=== PATIENT | female | born 1985 | race Caucasian/White ===

== ENCOUNTER 2017-05-30 22:10 | Emergency (ER) | payer OTHER ==
--- NOTE | 2017-05-30 22:38 | ED ---
ENT HPI - General Chief complaint: ENT Stated complaint: ear pain Time Seen by Provider: 05/30/17 22:27 Source: patient, RN notes reviewed Mode of arrival: ambulatory Limitations: no limitations - History of Present Illness Initial comments: 31-year-old female presents emergency Department chief complaint of right ear pain, fullness feeling. Patient states started last few days. Patient has fever, chills. She states that she's had surgery on more rear she's not sure which ear. She believes it x-rays her left ear. Patient denies any known fever , chills, headache or dizziness. Denies any dental issues states that she's had her teeth pulled. Patient denies chest pain, shortness breath she does admit to some sinus congestion. - Related Data Home Medications Medication Instructions Recorded Confirmed Multivitamins, Thera [Multivitamin 1 tab PO DAILY 03/13/17 05/30/17 (formulary)] Ibuprofen [Motrin Ib] 600 mg PO Q6H PRN 05/30/17 05/30/17 Omeprazole [PriLOSEC] 40 mg PO DAILY 05/30/17 05/30/17 Previous Rx's Medication Instructions Recorded Amoxicillin/Potassium Clav 1 tab PO Q12HR #20 tab 05/30/17 [Augmentin 875-125 Tablet] Allergies Allergy/AdvReac Type Severity Reaction Status Date / Time No Known Allergies Allergy Verified 05/30/17 22:42 Review of Systems ROS Statement: Those systems with pertinent positive or pertinent negative responses have been documented in the HPI. ROS Other: All systems not noted in ROS Statement are negative. Past Medical History Past Medical History: GERD/Reflux Additional Past Medical History / Comment(s): genital herpes, anxiety History of Any Multi-Drug Resistant Organisms: MRSA Date of last positivie culture/infection: 2014 MDRO Source:: right buttock Past Surgical History: Cholecystectomy, Ear Surgery Past Psychological History: ADD/ADHD, Anxiety, Depression Smoking Status: Current every day smoker Past Alcohol Use History: None Reported Past Drug Use History: None Reported General Exam Limitations: no limitations General appearance: alert, in no apparent distress Head exam: Present: atraumatic, normocephalic, normal inspection Eye exam: Present: normal appearance, PERRL, EOMI. Absent: scleral icterus, conjunctival injection, periorbital swelling ENT exam: Present: normal oropharynx, mucous membranes moist. Absent: TM's normal bilaterally, normal external ear exam (Cerumen impaction on the right noted) Neck exam: Present: normal inspection, full ROM. Absent: tenderness, meningismus, lymphadenopathy Respiratory exam: Present: normal lung sounds bilaterally. Absent: respiratory distress, wheezes, rales, rhonchi, stridor Cardiovascular Exam: Present: regular rate, normal rhythm, normal heart sounds. Absent: systolic murmur, diastolic murmur, rubs, gallop, clicks Course Vital Signs 05/30/17 22:23 Temperature 98.2 F Pulse Rate 94 Respiratory 18 Rate Blood Pressure 139/65 O2 Sat by Pulse 97 Oximetry Medical Decision Making - Medical Decision Making 31-year-old female presents emergency Department chief complaint of right ear pain. There is an area of cerumen. This was attempted to be irrigated by RN the list was unsuccessful. Concerns for possible infection. Patient was placed on antibiotics and advised to follow-up with ENT. Disposition Clinical Impression: Otalgia, right ear, Cerumen impaction Disposition: HOME SELF-CARE Condition: Stable Instructions: Earache (ED) Additional Instructions: Please return to the Emergency Department if symptoms worsen or any other concerns. Prescriptions: Amoxicillin/Potassium Clav [Augmentin 875-125 Tablet] 1 tab PO Q12HR #20 tab Referrals: Catherine Goyal MD [Primary Care Provider] - 1-2 days Time of Disposition: 23:08
[2017-05-30 23:17] VITALS: BP 176/81; PULSE 82; RESP 20; TEMP 98.5
== END 2017-05-30 23:28 | disposition home or self-care (01) ==
LOC: EC 22:10
DX: H61.21 Impacted cerumen, right ear (principal); R50.9 Fever, unspecified; R09.81 Nasal congestion; K21.9 Gastro-esophageal reflux disease without esophagitis; F17.200 Nicotine dependence, unspecified, uncomplicated; Z79.899 Other long term (current) drug therapy; Z86.14 Personal history of Methicillin resistant Staphylococcus aureus infection; Z98.890 Other specified postprocedural states
CPT/HCPCS: 99282

== ENCOUNTER 2017-08-26 00:53 | Emergency (ER) | payer OTHER ==
[2017-08-26 00:59] VITALS: RESP 18; TEMP 98.1
--- NOTE | 2017-08-26 01:20 | ED ---
Abdominal Pain HPI - General Chief Complaint: Abdominal Pain Stated Complaint: Abdominal and Vaginal Pain 8 wks Preg Time Seen by Provider: 08/26/17 01:03 Source: patient Mode of arrival: ambulatory Limitations: no limitations - History of Present Illness Initial Comments: 31-year-old female patient presents to the emergency department today for evaluation of suprapubic abdominal cramping. Patient states that she is approximately 10 weeks . Patient states that she found out 2 weeks ago that she was . States that she has been having this mild lower abdominal cramping since then. She denies any abnormal vaginal bleeding or discharge at this time. Denies any hematuria or dysuria but states that she has been having some urinary frequency. Patient states that she is concerned she is having a miscarriage because her breast tenderness and nausea has improved. Patient denies any fever, chills, or back pain. Patient is . Patient has an appointment with her PHOTOGRAMMETRIC SURVEYOR on 08/30/2017. Patient denies any recent rash, shortness breath, chest pain, diarrhea, constipation, back pain, numbness, tingling, dizziness, weakness, headache, visual changes, or any other complaints. - Related Data Home Medications Medication Instructions Recorded Confirmed Multivitamins, Thera [Multivitamin 1 tab PO DAILY 03/13/17 07/29/17 (formulary)] Ibuprofen [Motrin Ib] 600 mg PO Q6H PRN 05/30/17 07/29/17 Omeprazole [PriLOSEC] 40 mg PO DAILY 05/30/17 07/29/17 Previous Rx's Medication Instructions Recorded Cephalexin [Keflex] 500 mg PO Q6H #28 cap 08/26/17 Allergies Allergy/AdvReac Type Severity Reaction Status Date / Time amoxicillin [From Augmentin] Allergy Rash/Hives Verified 08/26/17 00:54 clavulanic acid Allergy Rash/Hives Verified 08/26/17 00:54 [From Augmentin] Review of Systems ROS Statement: Those systems with pertinent positive or pertinent negative responses have been documented in the HPI. ROS Other: All systems not noted in ROS Statement are negative. Past Medical History Past Medical History: GERD/Reflux Additional Past Medical History / Comment(s): genital herpes, anxiety History of Any Multi-Drug Resistant Organisms: MRSA Date of last positivie culture/infection: 2014 MDRO Source:: right buttock Past Surgical History: Cholecystectomy, Ear Surgery Past Psychological History: ADD/ADHD, Anxiety, Depression Smoking Status: Current every day smoker Past Alcohol Use History: None Reported Past Drug Use History: None Reported General Exam Limitations: no limitations General appearance: alert, in no apparent distress, other (This is a well- developed, obese adult female patient in no acute distress. Vital signs upon presentation are temperature 98.1F, pulse 94, respirations 18, blood pressure 150/70, pulse ox 98% on room air.) Eye exam: Present: normal appearance, PERRL, EOMI. Absent: scleral icterus, conjunctival injection, periorbital swelling ENT exam: Present: normal exam, normal oropharynx, mucous membranes moist Respiratory exam: Present: normal lung sounds bilaterally. Absent: respiratory distress, wheezes, rales, rhonchi, stridor Cardiovascular Exam: Present: regular rate, normal rhythm, normal heart sounds. Absent: systolic murmur, diastolic murmur, rubs, gallop, clicks GI/Abdominal exam: Present: soft, normal bowel sounds. Absent: distended, tenderness, guarding, rebound, rigid Neurological exam: Present: alert, oriented X3, CN II-XII intact Psychiatric exam: Present: normal affect, normal mood Skin exam: Present: warm, dry, intact, normal color. Absent: rash Course Vital Signs 08/26/17 08/26/17 00:55 02:00 Temperature 98.1 F Pulse Rate 94 87 Respiratory 18 18 Rate Blood Pressure 150/70 125/59 O2 Sat by Pulse 98 96 Oximetry Medical Decision Making - Medical Decision Making 31-year-old female patient presents to the emergency department today for complaints of mild suprapubic abdominal cramping. Physical examination was unremarkable, abdomen soft and nontender. Patient's chief concern was that her symptoms of nausea and breast tenderness have resolved and she was concerned this means she is having a miscarriage. She denied any abnormal vaginal bleeding or discharge. States that she has been having this pain for the last 2 weeks, states that she was having the pain when she was in to see her PHOTOGRAMMETRIC SURVEYOR. They told her that this was a normal part of . I did discuss normal progression of including positive signs and symptoms and their resolution nearing the second trimester. Patient denies any hematuria, dysuria , urinary frequency, urinary urgency. Urinalysis did show some bacteriuria. We will treat her with Keflex for this. Without severe pain or vaginal bleeding I do not feel ultrasound is warranted. She does have an appointment with her OB/ HOSIERY KNITTER on 08/30/2017. Return parameters were discussed in detail. She verbalizes understanding and agrees with this plan. - Lab Data Lab Results 08/26/17 Range/Units 01:03 Urine Color Yellow Urine Appearance Cloudy H (Clear) Urine pH 5.5 (5.0-8.0) Ur Specific [place] 1.025 (1.001-1.035) Urine Protein 1+ H (Negative) Urine Glucose (UA) Negative (Negative) Urine Ketones Negative (Negative) Urine Blood Small H (Negative) Urine Nitrite Negative (Negative) Urine Bilirubin Negative (Negative) Urine Urobilinogen <2.0 (<2.0) mg/dL Ur Leukocyte Esterase Small H (Negative) Urine RBC 2 (0-5) /hpf Urine WBC 5 (0-5) /hpf Ur Squamous Epith Cells 11 H (0-4) /hpf Urine Bacteria Few H (None) /hpf Urine Mucus Occasional H (None) /hpf Disposition Clinical Impression: Bacteriuria during , Suprapubic cramping Disposition: HOME SELF-CARE Condition: Good Instructions: (ED), Abdominal Pain in (ED), Urinary Tract Infection in (ED) Additional Instructions: Increase fluids. Take medications as directed. Follow-up with your PHOTOGRAMMETRIC SURVEYOR as soon as possible. Return here immediately for any new, worsening, or concerning symptoms. Prescriptions: Cephalexin [Keflex] 500 mg PO Q6H #28 cap Is patient prescribed a controlled substance at d/c from ED?: No Referrals: Catherine Goyal MD [Primary Care Provider] - 1-2 days Time of Disposition: 01:55
[2017-08-26 01:39] LABS: Appearance,Urine Cloudy (Clear); Bacteria,Urine Few /hpf; Bilirubin,Urine Negative (Negative); Blood,Urine Small (Negative); Color,Urine Yellow; Glucose,Urine (UA) Negative (Negative); Ketones,Urine Negative (Negative); Leukocyte Esterase,Urine Small (Negative); Mucus,Urine Occasional /hpf; Nitrite,Urine Negative (Negative); PH, Urine 5.5 (5.0-8.0); Protein,Urine 1+ (Negative); RBC,Urine 2 /hpf (0-5); Specific Gravity,Urine 1.025 (1.001-1.035); Squamous Epithelial Cell,Urine 11 /hpf (0-4); Urobilinogen,Urine <2.0 mg/dL (<2.0); WBC,Urine 5 /hpf (0-5)
[2017-08-26] MEDS ORDERED: CEPHALEXIN 500 MG CAP PO STA (01:53)
[2017-08-26 02:03] VITALS: BP 125/59; PULSE 87
== END 2017-08-26 02:05 | disposition home or self-care (01) ==
LOC: EC 00:53
DX: O26.891 Other specified pregnancy related conditions, first trimester (principal); R82.71 Bacteriuria; R10.30 Lower abdominal pain, unspecified; O99.611 Diseases of the digestive system complicating pregnancy, first trimester; K21.9 Gastro-esophageal reflux disease without esophagitis; O99.331 Smoking (tobacco) complicating pregnancy, first trimester; F17.200 Nicotine dependence, unspecified, uncomplicated; Z86.14 Personal history of Methicillin resistant Staphylococcus aureus infection; Z3A.10 10 weeks gestation of pregnancy; Z79.899 Other long term (current) drug therapy; Z88.0 Allergy status to penicillin
CPT/HCPCS: 81001; 87086; 99284

== ENCOUNTER 2017-12-02 00:56 | Outpatient (CLI) | payer OTHER ==
[2017-12-02 02:00] VITALS: BP 115/56; PULSE 86; RESP 18; TEMP 97.2
[2017-12-02 02:06] LABS: Appearance,Urine Cloudy (Clear); Bacteria,Urine Rare /hpf; Bilirubin,Urine Negative (Negative); Blood,Urine Trace (Negative); Calcium Oxalate Crystals,Urine Many /hpf; Color,Urine Yellow; Glucose,Urine (UA) Negative (Negative); Ketones,Urine Negative (Negative); Leukocyte Esterase,Urine Small (Negative); Mucus,Urine Rare /hpf; Nitrite,Urine Negative (Negative); PH, Urine 5.5 (5.0-8.0); Protein,Urine 1+ (Negative); RBC,Urine 3 /hpf (0-5); Specific Gravity,Urine 1.031 (1.001-1.035); Squamous Epithelial Cell,Urine 19 /hpf (0-4)
--- NOTE | 2017-12-02 12:38 | P.MSEPDOC ---
Presenting Problems - Arrival Data Date of Arrival on Unit: 12/02/17 Time of Arrival on Unit: 00:56 Mode of Transport: Ambulatory - Complaint OB-Reason for Admission/Chief Complaint: Pain Comment: Left sided groin pain when walking or moving. Vaginal tenderness when wiping Medical History - Information : 2 Para: 0 Term: 0 : 0 Abortions: Spontaneous or Elective: 1 Number of Living Children: 0 - Gestational Age Gestational Age by SARAH (wks/days): 24 Weeks and 3 Days Review of Systems - Review of Systems Constitutional: No problems Breast: No problems ENT: No problems Cardiovascular: No problems Respiratory: No problems Gastrointestinal: No problems Genitourinary: Dysuria Musculoskeletal: No problems Neurological: No problems Skin: No problems Vital Signs - Temperature Temperature: 97.2 F Temperature Source: Temporal Artery Scan - Pulse Right Brachial Pulse Rate: 86 Pulse Assessment Method: Automatic Cuff - Respirations Respiratory Rate: 18 Oxygen Delivery Method: Room Air O2 Sat by Pulse Oximetry: 99 - Blood Pressure Right Arm Blood Pressure: 115/56 Blood Pressure Mean: 75 Blood Pressure Source: Automatic Cuff Medical Screen Scoring (Pre) - Cervical Exam Dilation: Exam Deferred Effacement: Exam Deferred Membranes: Intact - Uterine Contractions Frequency: N/A - Maternal Vital Signs Maternal Temperature: N/A Maternal Blood Pressure: N/A Signs of Preeclampsia: N/A Maternal Respirations: N/A - Pain Assessment Pain Location and Character: Left, Lower, Abdomen Pain Scale Used: Numeric (1 - 10) Pain Intensity: 5 Pain Description: Aching Pain Frequency: Intermittent Pain Duration Units: Minutes Pain Behavior: None Exhibited Pain Aggravating Factors: Activity, Changing Position - Assessment Baseline FHR: 135 Heart Rate - NICHD Category: Category I (Normal) = 0 - Total Score Total Score (Pre): 0 - Level of Risk Level of Risk: Low (0-5) Physician Notification (Pre) - Physician Notified Physician Notified Date: 12/02/17 Physician Notified Time: 01:36 Physician/Practitioner Notifed:: Dr. Lance Spoke With: Dr. Lance New Order Received: Yes - Notification Comment Comment: Dr. Lance given report on pt. Pt c/o of left sided groin pain upon standing or moving. Vaginal tenderness when wiping. Pt is high risk and being seen at [facility] for obesity. Pt also states she was diagnosed GDM. Pt is currently being tx for UTI. Orders recieved to send UA and culture. To d/c pt to home and to have pt's DR follow up for Culture results Disposition - Disposition OB Disposition: Discharge to home Discharge Date: 12/02/17 Discharge Time: 01:57 I agree with the RN Medical Screening Exam: Yes Risk & Benefit of care provided described in d/c instruction: Yes Diagnosis: PAIN, UNSPECIFIED
== END 2017-12-02 01:56 | disposition home or self-care (01) ==
LOC: FBPOP 00:56
PROVIDERS: ATTEND Obstetrics & Gynecology
DX: O99.89 Other specified diseases and conditions complicating pregnancy, childbirth and the puerperium (principal); R52 Pain, unspecified; Z3A.24 24 weeks gestation of pregnancy
CPT/HCPCS: 81001; 87086; G0463; 99213

== ENCOUNTER 2017-12-17 12:14 | Emergency (ER) | payer OTHER ==
[2017-12-17 12:33] VITALS: RESP 18
[2017-12-17] MEDS ORDERED: LIDOCAINE/EPINEPHR/TETRACAINE 5 ML BOTTLE TOPICAL ONE (12:59)
--- NOTE | 2017-12-17 13:15 | ED ---
Skin/Abscess/FB HPI - General Chief complaint: Skin/Abscess/Foreign Body Stated complaint: Urogenital-27 wks preg Time Seen by Provider: 12/17/17 12:34 Source: patient, RN notes reviewed, old records reviewed Mode of arrival: ambulatory Limitations: no limitations - History of Present Illness Initial comments: This is a 32-year-old female present the emergency department today with chief complaint of a abscess over her left labia majora. Patient reports that she noticed over the past 2 days with painful she was wiping. She denies any specific dysuria. Patient states she's also been on Macrobid for asymptomatic bacteriuria in . He denies any vaginal bleeding or discharge. She states she has no abdominal pain. - Related Data Home Medications Medication Instructions Recorded Confirmed Cholecalciferol (Vitamin D3) 2,000 unit PO DAILY 12/02/17 12/17/17 [Vitamin D3] Pnv No.95/Ferrous Fum/Folic AC 1 each PO ONCE 12/02/17 12/17/17 [ Multivitamin Tablet] Omeprazole Magnesium [PriLOSEC OTC] 20 mg PO DAILY PRN 12/17/17 12/17/17 Previous Rx's Medication Instructions Recorded Cephalexin [Keflex] 500 mg PO Q8HR #21 cap 12/17/17 Allergies Allergy/AdvReac Type Severity Reaction Status Date / Time amoxicillin [From Augmentin] Allergy Rash/Hives Verified 12/17/17 12:33 clavulanic acid Allergy Rash/Hives Verified 12/17/17 12:33 [From Augmentin] Review of Systems ROS Statement: Those systems with pertinent positive or pertinent negative responses have been documented in the HPI. ROS Other: All systems not noted in ROS Statement are negative. Past Medical History Past Medical History: GERD/Reflux Additional Past Medical History / Comment(s): genital herpes, anxiety, fely. cyst History of Any Multi-Drug Resistant Organisms: None Reported, MRSA Date of last positivie culture/infection: 2014 MDRO Source:: right buttock Past Surgical History: Cholecystectomy, Ear Surgery Past Psychological History: ADD/ADHD, Anxiety, Depression Smoking Status: Current every day smoker Past Alcohol Use History: None Reported Past Drug Use History: None Reported General Exam - General Exam Comments Initial Comments: This is a 32-year-old female. Alert and oriented. No significant distress. Patient is morbidly obese. Limitations: no limitations General appearance: alert, in no apparent distress Head exam: Present: atraumatic, normocephalic, normal inspection Eye exam: Present: normal appearance, PERRL, EOMI. Absent: scleral icterus, conjunctival injection, periorbital swelling ENT exam: Present: normal exam, mucous membranes moist Neck exam: Present: normal inspection. Absent: tenderness, meningismus, lymphadenopathy Respiratory exam: Present: normal lung sounds bilaterally. Absent: respiratory distress, wheezes, rales, rhonchi, stridor GI/Abdominal exam: Present: soft, normal bowel sounds. Absent: distended, tenderness, guarding, rebound, rigid External exam: Present: erythema (She has an area of erythema and swelling over the labia majora on the left side. Concern for small abscess from infected hair follicle.), swelling. Absent: normal external exam Extremities exam: Present: normal inspection, full ROM, normal capillary refill. Absent: tenderness, pedal edema, joint swelling, calf tenderness Back exam: Present: normal inspection Neurological exam: Present: alert, oriented X3, CN II-XII intact Psychiatric exam: Present: normal affect, normal mood Skin exam: Present: warm, dry, intact, normal color. Absent: rash Course Vital Signs 12/17/17 12/17/17 12:29 13:48 Temperature 98.4 F 97.5 F L Pulse Rate 103 H 81 Respiratory 18 18 Rate Blood Pressure 116/69 122/62 O2 Sat by Pulse 98 98 Oximetry Procedures - Incision & Drainage Time Out Performed?: Yes Size (cm): 2 Anesthetic Used: lidocaine 1% Amount (mLs): 2 I&D Cleaning Method: Iodine Sterile Field Used?: Yes Scalpel Used: #11 Needle Aspiration Performed?: Yes Irrigation Performed?: Yes I&D Drainage Obtained: Pus, Blood Culture Obtained?: Yes Patient Tolerated Procedure: well, no complications Medical Decision Making - Medical Decision Making Patient is a 32-year-old female presents weren't [place] today with an abscess over her left labia majora. Likely due to infected hair follicle. She is also 27 weeks . She does state that she's been on Macrobid intermittently for bacteria . She reports she is a high-risk and follows with DIETETIC TECH some [place]. At this time Patient appears to have a superficial 2 cm abscess of her left labia majora. I cleansed the area with iodine and used an 11 blade scalpel made a small incision. Pus was extracted from the site. We did start the Patient on Keflex. Patient has been advised to follow-up with DIETETIC TECH and primary care physician. Discussed doing sits baths. Disposition Clinical Impression: Left genital labial abscess Disposition: HOME SELF-CARE Condition: Good Instructions: Abscess (ED) Additional Instructions: Patient advised to follow-up with primary care physician. Do warm sits baths. Take antibiotic as prescribed. Return to emergency department if any alarming signs or symptoms occur. Prescriptions: Cephalexin [Keflex] 500 mg PO Q8HR #21 cap Is patient prescribed a controlled substance at d/c from ED?: No Referrals: Catherine Goyal MD [Primary Care Provider] - 1-2 days Time of Disposition: 13:34
[2017-12-17] MEDS ORDERED: LIDOCAINE 1% INJ 10MG/ML (20 ML MDV) SQ STA (13:18)
[2017-12-17 13:49] VITALS: BP 122/62; PULSE 81; TEMP 97.5
== END 2017-12-17 13:48 | disposition home or self-care (01) ==
LOC: EC 12:14
DX: O23.592 Infection of other part of genital tract in pregnancy, second trimester (principal); O99.612 Diseases of the digestive system complicating pregnancy, second trimester; K21.9 Gastro-esophageal reflux disease without esophagitis; O99.332 Smoking (tobacco) complicating pregnancy, second trimester; F17.200 Nicotine dependence, unspecified, uncomplicated; Z3A.27 27 weeks gestation of pregnancy; Z88.0 Allergy status to penicillin; Z88.1 Allergy status to other antibiotic agents
CPT/HCPCS: 87070; 87205; 99284; 56405; J2001

== ENCOUNTER 2017-12-22 19:22 | Emergency (ER) | payer OTHER ==
[2017-12-22] MEDS ORDERED: LIDOCAINE 1% INJ 10MG/ML (20 ML MDV) SQ ONE (20:23)
--- NOTE | 2017-12-22 21:34 | ED ---
Skin/Abscess/FB HPI - General Chief complaint: Skin/Abscess/Foreign Body Stated complaint: Female Time Seen by Provider: 12/22/17 20:18 Source: patient Mode of arrival: ambulatory Limitations: no limitations - History of Present Illness Initial comments: 32-year-old female patient presents to the emergency department today for evaluation of abscess to the labia. Patient states that she did have this drained approximately 5 days ago but the area has become more swollen and painful. Patient states that she has been doing warm compresses but it is not seem to be helping. Patient is taking Keflex currently for the infection. Patient is 27 weeks . She denies any abdominal pain, vaginal bleeding, or vaginal discharge. She denies any fevers or chills. Denies any hematuria, dysuria, urinary frequency, urinary urgency. Patient denies any recent rash, shortness breath, chest pain, abdominal pain, nausea, vomiting, diarrhea, constipation, back pain, numbness, tingling, dizziness, weakness, headache, visual changes, or any other complaints. - Related Data Home Medications Medication Instructions Recorded Confirmed Cholecalciferol (Vitamin D3) 2,000 unit PO DAILY 12/02/17 12/22/17 [Vitamin D3] Pnv No.95/Ferrous Fum/Folic AC 1 tab PO DAILY 12/02/17 12/22/17 [ Multivitamin Tablet] Omeprazole Magnesium [PriLOSEC OTC] 20 mg PO DAILY PRN 12/17/17 12/22/17 Previous Rx's Medication Instructions Recorded Cephalexin [Keflex] 500 mg PO Q8HR #21 cap 12/17/17 Allergies Allergy/AdvReac Type Severity Reaction Status Date / Time amoxicillin [From Augmentin] Allergy Rash/Hives Verified 12/22/17 20:35 clavulanic acid Allergy Rash/Hives Verified 12/22/17 20:35 [From Augmentin] Review of Systems ROS Statement: Those systems with pertinent positive or pertinent negative responses have been documented in the HPI. ROS Other: All systems not noted in ROS Statement are negative. Past Medical History Past Medical History: GERD/Reflux Additional Past Medical History / Comment(s): genital herpes, anxiety, fely. cyst History of Any Multi-Drug Resistant Organisms: None Reported, MRSA Date of last positivie culture/infection: 2014 MDRO Source:: right buttock Past Surgical History: Cholecystectomy, Ear Surgery Past Psychological History: ADD/ADHD, Anxiety, Depression Smoking Status: Current every day smoker Past Alcohol Use History: None Reported Past Drug Use History: None Reported General Exam Limitations: no limitations General appearance: alert, in no apparent distress, other (This is a well- developed, well-nourished adult female patient in no acute distress. Vital signs upon presentation are temperature 99.0F, pulse 109, respirations 18, blood pressure 131/81, pulse ox 96% on room air.) Eye exam: Present: normal appearance, PERRL, EOMI. Absent: scleral icterus, conjunctival injection, periorbital swelling ENT exam: Present: normal exam, normal oropharynx, mucous membranes moist Respiratory exam: Present: normal lung sounds bilaterally. Absent: respiratory distress, wheezes, rales, rhonchi, stridor Cardiovascular Exam: Present: regular rate, normal rhythm, normal heart sounds. Absent: systolic murmur, diastolic murmur, rubs, gallop, clicks GI/Abdominal exam: Present: soft, normal bowel sounds, other (Gravid abdomen). Absent: distended, tenderness, guarding, rebound, rigid Neurological exam: Present: alert, oriented X3, CN II-XII intact Psychiatric exam: Present: normal affect, normal mood Skin exam: Present: warm, dry, intact, normal color. Absent: rash Course Vital Signs 12/22/17 12/22/17 19:35 21:41 Temperature 99 F 98 F Pulse Rate 109 H 86 Respiratory 18 16 Rate Blood Pressure 131/81 129/62 O2 Sat by Pulse 96 98 Oximetry Procedures - Incision & Drainage Consent Obtained: verbal consent Indication: abscess Site: vulva/vagina (Labia majora) Size (cm): 2 Anesthetic Used: lidocaine 1% Amount (mLs): 5 I&D Cleaning Method: Betadine Sterile Field Used?: Yes Scalpel Used: #11 Needle Aspiration Performed?: No Irrigation Performed?: No I&D Drainage Obtained: Pus, Blood Packing: Iodoform (One quarter inch) Culture Obtained?: No Patient Tolerated Procedure: well Medical Decision Making - Medical Decision Making 32-year-old female patient presented to the emergency department today for evaluation of abscess to the left labia majora. Physical examination did reveal a 2 cm fluctuant abscess to the left upper labia majora. Did perform incision and drainage, patient tolerated the procedure very well. There was a purulent output. Patient did have this drained here approximately 5 days ago, did review results of culture showed no growth. Patient is currently taking Keflex for this, she is instructed to continue taking this medication. She is instructed to follow up with her [facility] MAKER for further evaluation and recheck of the area. Return parameters were discussed in detail. She verbalizes understanding and agrees with this plan. Disposition Clinical Impression: Abscess of labia majora Narrative: LEft Disposition: HOME SELF-CARE Condition: Good Instructions: Abscess Incision and Drainage (ED), Abscess (ED) Additional Instructions: Do warm sitz baths 3-4 times daily. Take Tylenol for pain control. Follow-up with LEVI MAKER for reevaluation of the abscess in 1-2 days. Return here immediately for any new, worsening, or concerning symptoms. Is patient prescribed a controlled substance at d/c from ED?: No Referrals: Catherine Goyal MD [Primary Care Provider] - 1-2 days Time of Disposition: 21:34
[2017-12-22 21:42] VITALS: BP 129/62; PULSE 86; RESP 16; TEMP 98
== END 2017-12-22 21:42 | disposition home or self-care (01) ==
LOC: EC 19:22
DX: O23.592 Infection of other part of genital tract in pregnancy, second trimester (principal); N76.4 Abscess of vulva; Z3A.27 27 weeks gestation of pregnancy; O99.332 Smoking (tobacco) complicating pregnancy, second trimester; F17.200 Nicotine dependence, unspecified, uncomplicated; Z86.14 Personal history of Methicillin resistant Staphylococcus aureus infection; Z79.899 Other long term (current) drug therapy; Z88.0 Allergy status to penicillin
CPT/HCPCS: 99283; 56405; J2001

== ENCOUNTER 2018-01-24 15:54 | Emergency (ER) | payer OTHER ==
[2018-01-24] MEDS ORDERED: LIDOCAINE 1% INJ 10MG/ML (20 ML MDV) SQ ONE (17:07)
[2018-01-24] MEDS ORDERED: CEPHALEXIN 500 MG CAP PO STA (17:11)
--- NOTE | 2018-01-24 17:18 | ED ---
Female Urogenital HPI - General Chief complaint: Urogenital Stated complaint: Female , Cyst Time Seen by Provider: 01/24/18 16:29 Source: patient, RN notes reviewed Mode of arrival: ambulatory Limitations: no limitations - History of Present Illness Initial comments: This is a 32-year-old female presents to the emergency department with chief complaint of vaginal cyst. Patient states that she is currently 32 weeks . She states that this is the second cyst she has had on her labia in the past 3 months. Patient states the last one was incised and she was started on Keflex. Patient states that she noticed the cyst 4 days ago. She states that the cyst drained on day 1 but has not been drinking since. She denies any fevers or chills. Denies abdominal pain, nausea or vomiting, vaginal bleeding, dysuria, hematuria, increased urinary frequency and urgency. - Related Data Home Medications Medication Instructions Recorded Confirmed Cholecalciferol (Vitamin D3) 2,000 unit PO HS 12/02/17 01/24/18 [Vitamin D3] Pnv No.95/Ferrous Fum/Folic AC 1 tab PO HS 12/02/17 01/24/18 [ Multivitamin Tablet] Acetaminophen [Tylenol] 1,000 mg PO Q4-6H PRN 01/24/18 01/24/18 Previous Rx's Medication Instructions Recorded Cephalexin [Keflex] 500 mg PO Q12HR #10 cap 01/24/18 Allergies Allergy/AdvReac Type Severity Reaction Status Date / Time amoxicillin [From Augmentin] Allergy Rash/Hives Verified 01/24/18 16:39 clavulanic acid Allergy Rash/Hives Verified 01/24/18 16:39 [From Augmentin] Review of Systems ROS Statement: Those systems with pertinent positive or pertinent negative responses have been documented in the HPI. ROS Other: All systems not noted in ROS Statement are negative. Past Medical History Past Medical History: GERD/Reflux Additional Past Medical History / Comment(s): genital herpes, anxiety, fely. cyst History of Any Multi-Drug Resistant Organisms: None Reported, MRSA Date of last positivie culture/infection: 2014 MDRO Source:: right buttock Past Surgical History: Cholecystectomy, Ear Surgery Past Psychological History: ADD/ADHD, Anxiety, Depression Smoking Status: Current every day smoker Past Alcohol Use History: None Reported Past Drug Use History: None Reported General Exam - General Exam Comments Initial Comments: General: Awake and alert, well-developed; in no apparent distress. HEENT: Head atraumatic, normocephalic. Pupils are equal, round and reactive to light. Extraocular movements intact. Oropharynx moist with missing dentition throughout. Neck: Supple. Normal ROM. Cardiovascular: Regular rate and rhythm. No murmurs, rubs or gallops. Chest symmetrical. Respiratory: Lungs clear to auscultation bilaterally. No wheezes, rales or rhonchi. Normal respiratory effort with no use of accessory muscles. Abdomen: Soft, non-tender, non-distended. No rigidity, rebound or guarding. Normal bowel sounds in all 4 quadrants. Musculoskeletal: Normal ROM, no tenderness bilateral upper and lower extremities. Ambulating normally. Skin: [place], warm and dry. Neurological: Alert and oriented x3. CN II-XII grossly intact. Speech is fluent and answers are appropriate. No focal neuro deficits. Psychiatric: Normal mood and affect. No overt signs of depression or anxiety noted. Limitations: no limitations External exam: Present: other (Approximately 1 cm in diameter area of fluctuance with overlying pustule left labia majora.) Course Vital Signs 01/24/18 16:18 Temperature 98.1 F Pulse Rate 65 Respiratory 16 Rate Blood Pressure 136/68 O2 Sat by Pulse 97 Oximetry Procedures - Incision & Drainage Consent Obtained: verbal consent Indication: Genital abscess Site: vulva/vagina Size (cm): 1 Anesthetic Used: lidocaine 1% Amount (mLs): 2 I&D Cleaning Method: Betadine Scalpel Used: #11 I&D Drainage Obtained: Pus, Blood Culture Obtained?: No Patient Tolerated Procedure: well, no complications Medical Decision Making - Medical Decision Making This is a 32-year-old female who presents to the emergency department with chief complaint of vaginal cyst. Patient is currently 32 weeks . She reports a cyst to her labia for the past 4 days. There is an approximately 1 cm in diameter area of fluctuance to the left labia majora. I&D was performed and pus and blood were extracted. Patient tolerated the procedure well without complications. Recommended warm compresses and sitz baths. Instructed patient to follow up with [facility] plan within 1-2 days. Patient will be started on a course of Keflex. Vital signs are stable and she is in no acute distress. She will be discharged home at this time. She is in agreement with plan and voices understanding. All questions were answered. Disposition Clinical Impression: Abscess of labia majora Disposition: HOME SELF-CARE Condition: Good Instructions: Abscess Incision and Drainage (ED), Abscess (ED) Additional Instructions: Please take medications as prescribed. Please follow-up with [facility] within 1-2 days. Please perform warm sits baths and use warm compresses. Please follow up with primary care provider within 1-2 days. Return to emergency department if symptoms should worsen or any concerns arise. Prescriptions: Cephalexin [Keflex] 500 mg PO Q12HR #10 cap Is patient prescribed a controlled substance at d/c from ED?: No Referrals: Catherine Goyal MD [Primary Care Provider] - 1-2 days Time of Disposition: 17:46
[2018-01-24 18:01] VITALS: BP 137/66; PULSE 67; RESP 18; TEMP 98.3
== END 2018-01-24 18:01 | disposition home or self-care (01) ==
LOC: EC 15:54
DX: O99.89 Other specified diseases and conditions complicating pregnancy, childbirth and the puerperium (principal); N76.4 Abscess of vulva; Z3A.32 32 weeks gestation of pregnancy; O99.333 Smoking (tobacco) complicating pregnancy, third trimester; F17.200 Nicotine dependence, unspecified, uncomplicated; Z86.14 Personal history of Methicillin resistant Staphylococcus aureus infection; Z79.899 Other long term (current) drug therapy; Z88.0 Allergy status to penicillin
CPT/HCPCS: 99283; 56405; J2001

== ENCOUNTER 2018-01-31 09:02 | Outpatient (CLI) | payer OTHER ==
[2018-01-31 09:47] LABS: Appearance,Urine Cloudy (Clear); Bacteria,Urine Moderate /hpf; Bilirubin,Urine Negative (Negative); Blood,Urine Negative (Negative); Color,Urine Yellow; Glucose,Urine (UA) 3+ (Negative); Ketones,Urine Negative (Negative); Leukocyte Esterase,Urine Small (Negative); Mucus,Urine Rare /hpf; Nitrite,Urine Negative (Negative); Protein,Urine Trace (Negative); RBC,Urine 2 /hpf (0-5); Specific Gravity,Urine 1.018 (1.001-1.035); Squamous Epithelial Cell,Urine 21 /hpf (0-4); Urobilinogen,Urine <2.0 mg/dL (<2.0); WBC,Urine 5 /hpf (0-5)
[2018-01-31 09:52] LABS: Glucose,Whole Blood 95 mg/dL (75-99)
[2018-01-31 11:39] VITALS: BP 120/57; PULSE 82; RESP 16; TEMP 98.2
--- NOTE | 2018-02-05 09:07 | P.MSEPDOC ---
Presenting Problems - Arrival Data Date of Arrival on Unit: 01/31/18 Time of Arrival on Unit: 09:30 Mode of Transport: Ambulatory - Complaint OB-Reason for Admission/Chief Complaint: Other Comment: swelling Medical History - Information : 1 Para: 0 Term: 0 : 0 Abortions: Spontaneous or Elective: 0 Number of Living Children: 0 - Gestational Age Gestational Age by SARAH (wks/days): 33 Weeks and 0 Days - History Complications: GDM Review of Systems - Review of Systems Constitutional: No problems Breast: No problems ENT: No problems Cardiovascular: No problems Respiratory: No problems Gastrointestinal: No problems Genitourinary: No problems Musculoskeletal: No problems Neurological: No problems Skin: No problems Vital Signs - Temperature Temperature: 98.2 F Temperature Source: Oral - Pulse Right Pulse Rate: 82 Pulse Assessment Method: Automatic Cuff - Respirations Respiratory Rate: 16 Oxygen Delivery Method: Room Air - Blood Pressure Sitting Blood Pressure: 120/57 Blood Pressure Mean: 78 Blood Pressure Source: Automatic Cuff Medical Screen Scoring (Pre) - Cervical Exam Dilation: Exam Deferred - Uterine Contractions Frequency: N/A - Maternal Vital Signs Maternal Temperature: N/A Signs of Preeclampsia: N/A Maternal Respirations: N/A - Pain Assessment Pain Scale Used: Numeric (1 - 10) Pain Intensity: 0 Pain Management Goal: 0 Pain Radiation Location: 0 Pain Duration: 0 Pain Behavior: None Exhibited Effects of Pain: 0 FLACC Face: No Expression/Smile = 0 FLACC Legs: Relaxed = 0 FLACC Activity: Lying Quietly = 0 FLACC Cry: No Cry = 0 FLACC Consolability: Content/Relaxed = 0 FLACC Pain Score: 0 - Maternal Trauma Maternal Trauma: N/A - Assessment Baseline FHR: 130 Heart Rate - NICHD Category: Category I (Normal) = 0 NST: Reactive Position: N/A Station: N/A - Total Score Total Score (Pre): 0 - Level of Risk Level of Risk: Low (0-5) Physician Notification (Pre) - Physician Notified Physician Notified Date: 01/31/18 Physician Notified Time: 10:30 Physician/Practitioner Notifed:: dr higgins Spoke With: dr higgins New Order Received: Yes - Notification Comment Comment: PT TO BE DISCHARGED HOME Disposition - Disposition OB Disposition: Discharge to home Discharge Date: 01/31/18 Discharge Time: 11:38 I agree with the RN Medical Screening Exam: Yes Risk & Benefit of care provided described in d/c instruction: Yes Diagnosis: EDEMA, UNSPECIFIED
== END 2018-01-31 11:39 | disposition home or self-care (01) ==
LOC: FBPOP 09:02
PROVIDERS: ATTEND Obstetrics & Gynecology
DX: O12.03 Gestational edema, third trimester (principal); Z3A.33 33 weeks gestation of pregnancy
CPT/HCPCS: 59025; 81001; G0463; 99213

== ENCOUNTER 2018-02-19 13:58 | Outpatient (CLI) | payer OTHER ==
[2018-02-19 14:57] VITALS: BP 122/69; PULSE 94; RESP 16; TEMP 96.8
--- NOTE | 2018-02-26 08:40 | P.MSEPDOC ---
Presenting Problems - Arrival Data Date of Arrival on Unit: 02/19/18 Time of Arrival on Unit: 13:58 Mode of Transport: Ambulatory - Complaint OB-Reason for Admission/Chief Complaint: Elevated Blood Pressure Comment: elevated bp at [facility] dr lissett paul, all bps wnl here in triage Medical History - Information : 2 Para: 0 Term: 0 : 0 Abortions: Spontaneous or Elective: 1 Number of Living Children: 0 - Gestational Age Gestational Age by SARAH (wks/days): 35 Weeks and 5 Days - History Complications: GDM Review of Systems - Review of Systems Constitutional: No problems Breast: No problems ENT: No problems Cardiovascular: No problems Respiratory: No problems Gastrointestinal: No problems Genitourinary: No problems Musculoskeletal: No problems Neurological: No problems Skin: No problems Vital Signs - Temperature Temperature: 96.8 F Temperature Source: Temporal Artery Scan - Pulse Right Sitting Pulse Rate: 94 Pulse Assessment Method: Automatic Cuff - Respirations Respiratory Rate: 16 Oxygen Delivery Method: Room Air - Blood Pressure Right Arm Blood Pressure: 122/69 Blood Pressure Mean: 86 Blood Pressure Source: Automatic Cuff Medical Screen Scoring (Pre) - Cervical Exam Dilation: Exam Deferred Effacement: Exam Deferred - Uterine Contractions Frequency: N/A - Maternal Vital Signs Maternal Temperature: N/A Maternal Blood Pressure: N/A Signs of Preeclampsia: N/A Maternal Respirations: N/A - Pain Assessment Pain Scale Used: Numeric (1 - 10) Pain Intensity: 0 Pain Behavior: None Exhibited - Maternal Trauma Maternal Trauma: N/A - Assessment Baseline FHR: 135 Heart Rate - NICHD Category: Category I (Normal) = 0 NST: Reactive Position: N/A Station: N/A - Total Score Total Score (Pre): 0 - Level of Risk Level of Risk: Low (0-5) Physician Notification (Pre) - Physician Notified Physician Notified Date: 02/19/18 Physician Notified Time: 14:39 Physician/Practitioner Notifed:: Kelly New Order Received: Yes (D/c home with follow-up on monday) - Notification Comment Comment: Dr. Mendoza called Dr. Buchanan from [place], pt has appt on monday02/23/18. bps 122/69, 107/55, 96/54 Disposition - Disposition OB Disposition: Discharge to home Discharge Date: 02/19/18 Discharge Time: 14:45 I agree with the RN Medical Screening Exam: Yes Physician's MSE Comment: I spoke with the patient's attending physician at [facility]. Apparently she was seen in the resident's clinic several days prior and an elevated blood pressure was documented but not followed up on. The patient was contacted today and instructed to return to the clinic for preeclamptic evaluation. She came to our facility instead. I reviewed her current blood pressures and reactive NST here and that physician felt comfortable with her following up with them as scheduled in the office. Preeclamptic precautions were reviewed with the patient here and she is instructed to follow-up with her provider should she have any further questions or concerns. Risk & Benefit of care provided described in d/c instruction: Yes Diagnosis: OTHER SPECIFIED COMPLICATIONS OF LABOR AND DELIVERY
== END 2018-02-19 14:45 | disposition home or self-care (01) ==
LOC: FBPOP 13:58
PROVIDERS: ATTEND Obstetrics & Gynecology
DX: O75.89 Other specified complications of labor and delivery (principal); Z3A.35 35 weeks gestation of pregnancy
CPT/HCPCS: 59025; G0463; 99213

== ENCOUNTER 2018-10-29 13:43 | Emergency (ER) | payer OTHER ==
[2018-10-29 14:51] VITALS: RESP 18
--- NOTE | 2018-10-29 15:53 | ED ---
Skin/Abscess/FB HPI - General Chief complaint: Skin/Abscess/Foreign Body Stated complaint: Ingrown toenail Time Seen by Provider: 10/29/18 14:51 Source: patient Mode of arrival: ambulatory Limitations: no limitations - History of Present Illness Initial comments: 32-year-old female presenting for right great toe pain. Patient states that she noticed right great toe pain today. She states that her toenail stuck to the nailbed she states she thinks she has fungus. Patient states that it is not going to quite some time she is not sure how she acquired a ingrown toenail however there is pain at the corner of the right nail. Patient denies any redness or swelling. Patient denies fevers, foot swelling or flu like symptoms. Denies trauma to the foot. Remaining ROS (-). Upon arrival patient appears well there is no signs of acute distress. - Related Data Home Medications Medication Instructions Recorded Confirmed Cholecalciferol (Vitamin D3) 2,000 unit PO HS 12/02/17 02/19/18 [Vitamin D3] Pnv No.95/Ferrous Fum/Folic AC 1 tab PO HS 12/02/17 02/19/18 [ Multivitamin Tablet] Nitrofurantoin Monohyd/M-Cryst 1 cap PO DAILY 01/31/18 02/19/18 [Macrobid] Previous Rx's Medication Instructions Recorded Mupirocin 2% Oint [Bactroban 2% 1 applic TOPICAL TID 7 Days #1 tube 10/29/18 Oint] Allergies Allergy/AdvReac Type Severity Reaction Status Date / Time amoxicillin [From Augmentin] Allergy Rash/Hives Verified 10/29/18 14:50 clavulanic acid Allergy Rash/Hives Verified 10/29/18 14:50 [From Augmentin] Review of Systems ROS Statement: Those systems with pertinent positive or pertinent negative responses have been documented in the HPI. ROS Other: All systems not noted in ROS Statement are negative. Past Medical History Past Medical History: GERD/Reflux Additional Past Medical History / Comment(s): genital herpes, anxiety, fely. cyst,POS History of Any Multi-Drug Resistant Organisms: None Reported, MRSA Date of last positivie culture/infection: 2014 MDRO Source:: right buttock Past Surgical History: Cholecystectomy, Ear Surgery Past Psychological History: ADD/ADHD, Anxiety, Depression Smoking Status: Current every day smoker Past Alcohol Use History: None Reported Past Drug Use History: None Reported General Exam - General Exam Comments Initial Comments: General: The patient is awake and alert, in no distress, and does not appear acutely ill. Eye: Pupils are equal, round and reactive to light, extra-ocular movements are intact. No nystagmus. There is normal conjunctiva bilaterally. No signs of icterus. Ears, nose, mouth and throat: There are moist mucous membranes and no oral lesions. Neck: The neck is supple, there is no tenderness or JVD. Cardiovascular: There is a regular rate and rhythm. No murmur, rub or gallop is appreciated. Respiratory: Lungs are clear to auscultation, respirations are non-labored, breath sounds are equal. No wheezes, stridor, rales, or rhonchi. Musculoskeletal: Normal ROM, no tenderness. Strength 5/5. Sensation intact. Pulses equal bilaterally 2+. Neurological: A&O x 3. CN II-XII intact, There are no obvious motor or sensory deficits. Coordination appears grossly intact. Speech is normal. Skin: Skin is warm and dry and no rashes. Great toe nail bed is adhere to nail, thickened-no redness, abscess, drainage noted. Tender along right lateral aspect of right great toe. Psychiatric: Cooperative, appropriate mood & affect, normal judgment. Limitations: no limitations Course Vital Signs 10/29/18 10/29/18 14:47 16:12 Temperature 98.4 F 98.2 F Pulse Rate 95 90 Respiratory 18 18 Rate Blood Pressure 125/68 131/83 O2 Sat by Pulse 100 96 Oximetry Medical Decision Making - Medical Decision Making 32yo female presenting for possible ingrown toe nail. Toe nail appear to have fungal infection, unable to seperate toenail from nail bed without significant t rauma. Patient has a small area of the toe nail poking into the skin of the right lateral side. Painful to push. No purulent drainage, redness or swelling consistent with infection. Patient denies DM. Patient toe cleansed with iodine, used scapel #11 to attempt to round the edge, difficult with active fungal infection. This I will refer patient to podiatry for procedure. Recommend warm soaks, and local bactroban. She is agreeable to this Plan discharge at this time. Disposition Clinical Impression: Ingrown toenail, Nail fungal infection Disposition: HOME SELF-CARE Condition: Good Instructions (If sedation given, give patient instructions): Ingrown Nail (ED) Additional Instructions: Please use medication as discussed. Please follow-up with family doctor in the next 2 days. Please soak toe 20 minutes and apply topical ointment as discussed. Please return to emergency room if the symptoms increase or worsen or for any other concerns. Prescriptions: Mupirocin 2% Oint [Bactroban 2% Oint] 1 applic TOPICAL TID 7 Days #1 tube Is patient prescribed a controlled substance at d/c from ED?: No Referrals: Catherine Goyal MD [Primary Care Provider] - 1-2 days Luis Lechuga DPM [STAFF PHYSICIAN] - 1-2 days Time of Disposition: 15:52
[2018-10-29 16:16] VITALS: BP 131/83; PULSE 90; TEMP 98.2
== END 2018-10-29 16:12 | disposition home or self-care (01) ==
LOC: EC 13:43
DX: L60.0 Ingrowing nail (principal); B35.1 Tinea unguium; F17.200 Nicotine dependence, unspecified, uncomplicated; Z86.14 Personal history of Methicillin resistant Staphylococcus aureus infection; Z88.0 Allergy status to penicillin
CPT/HCPCS: 99283

== ENCOUNTER 2018-11-23 13:10 | Emergency (ER) | payer OTHER ==
[2018-11-23] MEDS ORDERED: SODIUM CHLORIDE 0.9% 1,000 ML IV STA (13:40)
--- NOTE | 2018-11-23 13:48 | ED ---
General Adult HPI - General Chief complaint: Chest Pain Stated complaint: Chest Pain Time Seen by Provider: 11/23/18 13:26 Source: patient, RN notes reviewed Mode of arrival: ambulatory Limitations: no limitations - History of Present Illness Initial comments: The patient is a 32-year-old female presented to the emergency room today with chief complaint of chest pain to the chest wall that started yesterday. She does admit that she was watching TV when the pain started. States it's been a constant pain. She states that she has felt some radiation to the left shoulder. She does admit that she's also had some left lower back pain. Patient states that these pains are worse with movements. She denies any pleuritic chest pain. She denies any other associated symptoms or complaints currently. Patient denies any recent fever, chills, shortness of breath, chest pain, back pain, abdominal pain, headaches or visual changes, or any other complaints. - Related Data Home Medications Medication Instructions Recorded Confirmed Cholecalciferol (Vitamin D3) 2,000 unit PO HS 12/02/17 02/19/18 [Vitamin D3] Pnv No.95/Ferrous Fum/Folic AC 1 tab PO HS 12/02/17 02/19/18 [ Multivitamin Tablet] Nitrofurantoin Monohyd/M-Cryst 1 cap PO DAILY 01/31/18 02/19/18 [Macrobid] Previous Rx's Medication Instructions Recorded Mupirocin 2% Oint [Bactroban 2% 1 applic TOPICAL TID 7 Days #1 tube 10/29/18 Oint] Nitrofurantoin Monohyd/M-Cryst 100 mg PO Q12HR #14 cap 11/23/18 [Macrobid] Allergies Allergy/AdvReac Type Severity Reaction Status Date / Time amoxicillin [From Augmentin] Allergy Rash/Hives Verified 11/23/18 13:14 clavulanic acid Allergy Rash/Hives Verified 11/23/18 13:14 [From Augmentin] Review of Systems ROS Statement: Those systems with pertinent positive or pertinent negative responses have been documented in the HPI. ROS Other: All systems not noted in ROS Statement are negative. Past Medical History Past Medical History: GERD/Reflux Additional Past Medical History / Comment(s): genital herpes, anxiety, fely. cyst,POS History of Any Multi-Drug Resistant Organisms: None Reported, MRSA Date of last positivie culture/infection: 2014 MDRO Source:: right buttock Past Surgical History: Cholecystectomy, Ear Surgery Past Psychological History: ADD/ADHD, Anxiety, Depression Smoking Status: Current every day smoker Past Alcohol Use History: None Reported Past Drug Use History: None Reported General Exam - General Exam Comments Initial Comments: General: The patient is awake and alert, in no distress, and does not appear acutely ill. Eye: No signs of icterus. Ears, nose, mouth and throat: There are moist mucous membranes and no oral lesions. Neck: The neck is supple. Cardiovascular: There is a regular rate and rhythm. No murmur, rub or gallop is appreciated. Chest pain reproduced on palpation to the anterior chest wall left side. Respiratory: Lungs are clear to auscultation, respirations are non-labored, breath sounds are equal. No wheezes, stridor, rales, or rhonchi. Musculoskeletal: Normal appearance of thoracic lumbar spine with no step-off deformity. No tenderness midline. Mild tenderness paravertebrally to the left side of the lumbar. Full range motion. Sensations are intact. Strength is 5/5 bilaterally both upper and lower extremity's. Neurological: A&O x 3. CN II-XII intact, There are no obvious motor or sensory deficits. Coordination appears grossly intact. Speech is normal. Skin: Skin is warm and dry and no rashes or lesions are noted. Psychiatric: Cooperative, appropriate mood & affect, normal judgment. Limitations: no limitations Course Vital Signs 11/23/18 13:12 Temperature 98.9 F Pulse Rate 108 H Respiratory 20 Rate Blood Pressure 170/85 O2 Sat by Pulse 96 Oximetry Medical Decision Making - Medical Decision Making Condition reexamined at this time shows no signs of distress per she is resting comfortable. Vitals are stable. Patient's dimer was elevated at 0.60. A CT of the chest was obtained and is negative for any sign of PE. Patient's pain is reproduced on palpation and with movement and is felt to be musculoskeletal. Patient's palm was negative and EKG showing no acute changes. Patient's urinalysis reviewed does show 11 white cells. She does have a elevated white count of 13,000. She states that her white count seems to be typically elevated at 13 15,000 range in the past. She states that she's had urinary tract infections in the past and placed on Macrobid. She is states that she has had some increased urinary frequency with past 3 days. She does have some pain in the left flank. She was started on antibiotics of Macrobid. She is advised close follow-up with family physician over the next 2 days and return here to emergency room if any symptoms increase worsen. - Lab Data Result diagrams: 11/23/18 14:05 11/23/18 14:05 Lab Results 11/23/18 11/23/18 11/23/18 Range/Units 14:05 14:05 14:05 WBC 13.4 H (3.8-10.6) k/uL RBC 5.30 (3.80-5.40) m/uL Hgb 14.3 (11.4-16.0) gm/dL Hct 43.7 (34.0-46.0) % MCV 82.4 (80.0-100.0) fL MCH 27.0 (25.0-35.0) pg MCHC 32.8 (31.0-37.0) g/dL RDW 14.1 (11.5-15.5) % Plt Count 358 (150-450) k/uL Neutrophils % 77 % Lymphocytes % 15 % Monocytes % 4 % Eosinophils % 2 % Basophils % 1 % Neutrophils # 10.4 H (1.3-7.7) k/uL Lymphocytes # 2.0 (1.0-4.8) k/uL Monocytes # 0.6 (0-1.0) k/uL Eosinophils # 0.3 (0-0.7) k/uL Basophils # 0.1 (0-0.2) k/uL PT (9.0-12.0) sec INR (<1.2) APTT (22.0-30.0) sec D-Dimer (<0.60) mg/L FEU Sodium 142 (137-145) mmol/L Potassium 4.2 (3.5-5.1) mmol/L Chloride 103 (98-107) mmol/L Carbon Dioxide 29 (22-30) mmol/L Anion Gap 10 mmol/L BUN 12 (7-17) mg/dL Creatinine 0.64 (0.52-1.04) mg/dL Est GFR (CKD-EPI)AfAm >90 (>60 ml/min/1.73 sqM) Est GFR (CKD-EPI)NonAf >90 (>60 ml/min/1.73 sqM) Glucose 105 H (74-99) mg/dL Calcium 9.2 (8.4-10.2) mg/dL Total Bilirubin 0.3 (0.2-1.3) mg/dL AST 32 (14-36) U/L ALT 36 (9-52) U/L Alkaline Phosphatase 117 (38-126) U/L Total Creatine Kinase 349 H (30-135) U/L Total Protein 7.7 (6.3-8.2) g/dL Albumin 4.3 (3.5-5.0) g/dL Urine Color Urine Appearance (Clear) Urine pH (5.0-8.0) Ur Specific [place] (1.001-1.035) Urine Protein (Negative) Urine Glucose (UA) (Negative) Urine Ketones (Negative) Urine Blood (Negative) Urine Nitrite (Negative) Urine Bilirubin (Negative) Urine Urobilinogen (<2.0) mg/dL Ur Leukocyte Esterase (Negative) Urine RBC (0-5) /hpf Urine WBC (0-5) /hpf Ur Squamous Epith Cells (0-4) /hpf Urine Bacteria (None) /hpf Urine HCG, Qual (Not Detectd) 11/23/18 11/23/18 11/23/18 Range/Units 14:05 14:05 14:05 WBC (3.8-10.6) k/uL RBC (3.80-5.40) m/uL Hgb (11.4-16.0) gm/dL Hct (34.0-46.0) % MCV (80.0-100.0) fL MCH (25.0-35.0) pg MCHC (31.0-37.0) g/dL RDW (11.5-15.5) % Plt Count (150-450) k/uL Neutrophils % % Lymphocytes % % Monocytes % % Eosinophils % % Basophils % % Neutrophils # (1.3-7.7) k/uL Lymphocytes # (1.0-4.8) k/uL Monocytes # (0-1.0) k/uL Eosinophils # (0-0.7) k/uL Basophils # (0-0.2) k/uL PT 9.7 (9.0-12.0) sec INR 0.9 (<1.2) APTT 28.4 (22.0-30.0) sec D-Dimer 0.60 H (<0.60) mg/L FEU Sodium (137-145) mmol/L Potassium (3.5-5.1) mmol/L Chloride (98-107) mmol/L Carbon Dioxide (22-30) mmol/L Anion Gap mmol/L BUN (7-17) mg/dL Creatinine (0.52-1.04) mg/dL Est GFR (CKD-EPI)AfAm (>60 ml/min/1.73 sqM) Est GFR (CKD-EPI)NonAf (>60 ml/min/1.73 sqM) Glucose (74-99) mg/dL Calcium (8.4-10.2) mg/dL Total Bilirubin (0.2-1.3) mg/dL AST (14-36) U/L ALT (9-52) U/L Alkaline Phosphatase (38-126) U/L Total Creatine Kinase (30-135) U/L Total Protein (6.3-8.2) g/dL Albumin (3.5-5.0) g/dL Urine Color Light Yellow Urine Appearance Clear (Clear) Urine pH 7.0 (5.0-8.0) Ur Specific [place] 1.010 (1.001-1.035) Urine Protein Negative (Negative) Urine Glucose (UA) Negative (Negative) Urine Ketones Negative (Negative) Urine Blood Negative (Negative) Urine Nitrite Negative (Negative) Urine Bilirubin Negative (Negative) Urine Urobilinogen <2.0 (<2.0) mg/dL Ur Leukocyte Esterase Moderate H (Negative) Urine RBC <1 (0-5) /hpf Urine WBC 11 H (0-5) /hpf Ur Squamous Epith Cells 3 (0-4) /hpf Urine Bacteria Occasional H (None) /hpf Urine HCG, Qual Not Detected (Not Detectd) Disposition Clinical Impression: Acute UTI, Low back pain, Muscle strain of chest wall Disposition: HOME SELF-CARE Condition: Good Instructions (If sedation given, give patient instructions): Urinary Tract Infection in Women (ED) Additional Instructions: Please use medication as discussed. Please follow-up with family doctor and [facility] in the next 2 days. Please return to emergency room if the symptoms increase or worsen or for any other concerns. Prescriptions: Nitrofurantoin Monohyd/M-Cryst [Macrobid] 100 mg PO Q12HR #14 cap Is patient prescribed a controlled substance at d/c from ED?: No Referrals: Catherine Goyal MD [Primary Care Provider] - 1-2 days Time of Disposition: 15:56
[2018-11-23 14:20] LABS: Basophils # (A) 0.1 k/uL (0-0.2); Basophils % (A) 1 %; Eosinophils # (A) 0.3 k/uL (0-0.7); Eosinophils % (A) 2 %; HCT 43.7 % (34.0-46.0); HGB 14.3 gm/dL (11.4-16.0); Lymphocytes % (A) 15 %; MCHC 32.8 g/dL (31.0-37.0); MCV 82.4 fL (80.0-100.0); Mean Platelet Volume 6.5; Monocytes # (A) 0.6 k/uL (0-1.0); Monocytes % (A) 4 %; Neutrophils # (A) 10.4 k/uL (1.3-7.7); Neutrophils % (A) 77 %; Platelet Count 358 k/uL (150-450); RDW 14.1 % (11.5-15.5); WBC 13.4 k/uL (3.8-10.6)
[2018-11-23 14:26] LABS: ALT 36 U/L (9-52); AST 32 U/L (14-36); African American GFR (CKD) >90 (>60 ml/min/1.73 sqM); Albumin 4.3 g/dL (3.5-5.0); Alkaline Phosphatase 117 U/L (38-126); Anion Gap 10 mmol/L; Appearance,Urine Clear (Clear); Bacteria,Urine Occasional /hpf; Bilirubin,Urine Negative (Negative); Blood Urea Nitrogen 12 mg/dL (7-17); Blood,Urine Negative (Negative); Calcium 9.2 mg/dL (8.4-10.2); Carbon Dioxide 29 mmol/L (22-30); Chloride 103 mmol/L (98-107); Color,Urine Light Yellow; Glucose 105 mg/dL (74-99); Glucose,Urine (UA) Negative (Negative); Ketones,Urine Negative (Negative); Leukocyte Esterase,Urine Moderate (Negative); Nitrite,Urine Negative (Negative); Potassium 4.2 mmol/L (3.5-5.1); Protein,Urine Negative (Negative); RBC,Urine <1 /hpf (0-5); Sodium 142 mmol/L (137-145); Squamous Epithelial Cell,Urine 3 /hpf (0-4); Total Bilirubin 0.3 mg/dL (0.2-1.3); Total Protein 7.7 g/dL (6.3-8.2); Urobilinogen,Urine <2.0 mg/dL (<2.0); WBC,Urine 11 /hpf (0-5)
[2018-11-23 14:32] LABS: INR 0.9 (<1.2); Partial Thromboplastin Time 28.4 sec (22.0-30.0); Prothrombin Time 9.7 sec (9.0-12.0)
[2018-11-23 14:38] LABS: D-Dimer 0.6 mg/L FEU (<0.60)
[2018-11-23 15:06] LABS: Creatine Kinase 349 U/L (30-135)
[2018-11-23 15:17] LABS: Creatine Kinase MB 1.1 ng/mL (0.0-2.4); Troponin I <0.012 ng/mL (0.000-0.034)
--- NOTE | 2018-11-23 15:32 | CT ---
EXAMINATION TYPE: CT angio chest DATE OF EXAM: 11/23/2018 3:24 PM COMPARISON: None HISTORY: Left sided chest pain CT DLP: 967.5 mGycm Automated exposure control for dose reduction was used. CONTRAST: CTA scan of the thorax is performed with IV Contrast, patient injected with 100 mL of Isovue 370, pul monary embolism protocol. . FINDINGS: LUNGS: The lungs are grossly clear, there is no concerning parenchymal mass or nodule identified. T here is no pleural effusion or pneumothorax seen. The tracheobronchial tree is patent. MEDIASTINUM: There is satisfactory enhancement of the pulmonary artery and its branches, there is no CT evidence for pulmonary embolism. There are no greater than 1 cm hilar or mediastinal lymph nodes. No pericardial effusion is seen. OTHER: Mild thoracic spondylosis. No compression deformity. IMPRESSION: NO EVIDENCE OF PULMONARY EMBOLISM.
[2018-11-23 16:42] VITALS: BP 115/94; PULSE 84; RESP 18; TEMP 97.7
== END 2018-11-23 16:53 | disposition home or self-care (01) ==
LOC: EC 13:10
DX: N39.0 Urinary tract infection, site not specified (principal); S29.011A Strain of muscle and tendon of front wall of thorax, initial encounter; M54.5 Low back pain; Z32.02 Encounter for pregnancy test, result negative; F17.200 Nicotine dependence, unspecified, uncomplicated; Z88.0 Allergy status to penicillin; Z88.1 Allergy status to other antibiotic agents; X58.XXXA Exposure to other specified factors, initial encounter
CPT/HCPCS: 36415; 93005; 85379; 80053; 82550; 82553; 84484; 85025; 85610; 85730; 81001; 81025; 71275; 99285; 96360; Q9967

== ENCOUNTER 2019-01-27 13:48 | Emergency (ER) | payer OTHER ==
[2019-01-27 13:54] VITALS: TEMP 97.7
[2019-01-27] MEDS ORDERED: PANTOPRAZOLE 40 MG/10 ML VIAL IVP STA (14:02)
[2019-01-27] MEDS ORDERED: SODIUM CHLORIDE 0.9% 1,000 ML IV STA (14:02)
[2019-01-27] MEDS ORDERED: MAG HYDROX/AL HYDROX/SIMETH 30 ML, HYOSCYAMINE ELIXIR 10 ML PO STA ×2 (14:02)
[2019-01-27] MEDS ORDERED: METOCLOPRAMIDE 5 MG/ML 2 ML VIAL IVP STA (14:02)
[2019-01-27] MEDS ORDERED: diphenhydrAMINE 50 MG/ML 1 ML VIAL IVP STA (14:02)
--- NOTE | 2019-01-27 14:10 | ED ---
Abdominal Pain HPI - General Chief Complaint: Abdominal Pain Stated Complaint: Abd pain Time Seen by Provider: 01/27/19 13:56 Source: patient, RN notes reviewed Mode of arrival: ambulatory Limitations: no limitations - History of Present Illness Initial Comments: 33-year-old female presents emergency Department chief complaint of epigastric pain. Patient states that started approximately ago with indigestion. Patient states that she's having increased burping, reflux issues. Patient states that she's had increased flatus. Patient does admit that she's had a prior cholecystectomy 2002. Patient denies any fevers or chills. Patient denies any dysuria hematuria. Patient denies any chance . Denies any current chest pain shortness breath. Patient states that she recently restarted her current medication. - Related Data Home Medications Medication Instructions Recorded Confirmed Omeprazole [PriLOSEC] 20 mg PO DAILY 01/27/19 01/27/19 Previous Rx's Medication Instructions Recorded Omeprazole 40 mg PO DAILY #14 capsule. 01/27/19 Sucralfate [Carafate] 1 gm PO BID #20 tablet 01/27/19 Allergies Allergy/AdvReac Type Severity Reaction Status Date / Time amoxicillin [From Augmentin] Allergy Rash/Hives Verified 01/27/19 15:00 clavulanic acid Allergy Rash/Hives Verified 01/27/19 15:00 [From Augmentin] Review of Systems ROS Statement: Those systems with pertinent positive or pertinent negative responses have been documented in the HPI. ROS Other: All systems not noted in ROS Statement are negative. Past Medical History Past Medical History: GERD/Reflux Additional Past Medical History / Comment(s): genital herpes, anxiety, fely. cyst,POS History of Any Multi-Drug Resistant Organisms: None Reported, MRSA Date of last positivie culture/infection: 2014 MDRO Source:: right buttock Past Surgical History: Cholecystectomy, Ear Surgery Past Psychological History: ADD/ADHD, Anxiety, Depression Smoking Status: Current every day smoker Past Alcohol Use History: None Reported Past Drug Use History: None Reported General Exam Limitations: no limitations General appearance: alert, in no apparent distress Head exam: Present: atraumatic, normocephalic, normal inspection Eye exam: Present: normal appearance, PERRL, EOMI. Absent: scleral icterus, conjunctival injection, periorbital swelling ENT exam: Present: normal exam, normal oropharynx, mucous membranes moist, TM's normal bilaterally Neck exam: Present: normal inspection, full ROM. Absent: tenderness, meningismus, lymphadenopathy Respiratory exam: Present: normal lung sounds bilaterally. Absent: respiratory distress, wheezes, rales, rhonchi, stridor Cardiovascular Exam: Present: regular rate, normal rhythm, normal heart sounds. Absent: systolic murmur, diastolic murmur, rubs, gallop, clicks GI/Abdominal exam: Present: soft, tenderness (Epigastric tenderness), normal bow el sounds. Absent: distended, guarding, rebound, rigid Back exam: Absent: CVA tenderness (R), CVA tenderness (L) Skin exam: Present: warm, dry, intact, normal color. Absent: rash Course Vital Signs 01/27/19 13:49 Temperature 97.7 F Pulse Rate 99 Respiratory 24 Rate Blood Pressure 96/50 O2 Sat by Pulse 96 Oximetry Medical Decision Making - Medical Decision Making Labs are unremarkable urinalysis shows mild that he sees though there is multiple epithelial cells and she is asymptomatic will not be treated for urinary tract infection. Patient does feel improved after GI cocktail, Protonix. Patient be discharged with omeprazole 40 mg and Carafate. We discussed low-fat diet, GERD - Lab Data Result diagrams: 01/27/19 14:18 01/27/19 14:18 Lab Results 01/27/19 01/27/19 01/27/19 Range/Units 14:18 14:18 14:18 WBC 10.9 H (3.8-10.6) k/uL RBC 5.10 (3.80-5.40) m/uL Hgb 14.2 (11.4-16.0) gm/dL Hct 42.2 (34.0-46.0) % MCV 82.7 (80.0-100.0) fL MCH 27.9 (25.0-35.0) pg MCHC 33.7 (31.0-37.0) g/dL RDW 13.6 (11.5-15.5) % Plt Count 374 (150-450) k/uL Neutrophils % 72 % Lymphocytes % 18 % Monocytes % 4 % Eosinophils % 3 % Basophils % 1 % Neutrophils # 7.9 H (1.3-7.7) k/uL Lymphocytes # 2.0 (1.0-4.8) k/uL Monocytes # 0.4 (0-1.0) k/uL Eosinophils # 0.4 (0-0.7) k/uL Basophils # 0.1 (0-0.2) k/uL Sodium 140 (137-145) mmol/L Potassium 4.2 (3.5-5.1) mmol/L Chloride 107 (98-107) mmol/L Carbon Dioxide 23 (22-30) mmol/L Anion Gap 10 mmol/L BUN 10 (7-17) mg/dL Creatinine 0.64 (0.52-1.04) mg/dL Est GFR (CKD-EPI)AfAm >90 (>60 ml/min/1.73 sqM) Est GFR (CKD-EPI)NonAf >90 (>60 ml/min/1.73 sqM) Glucose 106 H (74-99) mg/dL Calcium 9.0 (8.4-10.2) mg/dL Total Bilirubin 0.5 (0.2-1.3) mg/dL AST 29 (14-36) U/L ALT 33 (9-52) U/L Alkaline Phosphatase 119 (38-126) U/L Total Protein 7.5 (6.3-8.2) g/dL Albumin 4.2 (3.5-5.0) g/dL Amylase 37 (30-110) U/L Lipase 43 (23-300) U/L Urine Color Yellow Urine Appearance Cloudy H (Clear) Urine pH 6.5 (5.0-8.0) Ur Specific [place] 1.021 (1.001-1.035) Urine Protein Trace H (Negative) Urine Glucose (UA) Negative (Negative) Urine Ketones Negative (Negative) Urine Blood Moderate H (Negative) Urine Nitrite Negative (Negative) Urine Bilirubin Negative (Negative) Urine Urobilinogen <2.0 (<2.0) mg/dL Ur Leukocyte Esterase Moderate H (Negative) Urine RBC 4 (0-5) /hpf Urine WBC 22 H (0-5) /hpf Ur Squamous Epith Cells 15 H (0-4) /hpf Amorphous Sediment Rare H (None) /hpf Urine Bacteria Rare H (None) /hpf Hyaline Casts 1 (0-2) /lpf Urine Mucus Rare H (None) /hpf Disposition Clinical Impression: GERD (gastroesophageal reflux disease), Gastritis Disposition: HOME SELF-CARE Condition: Stable Instructions (If sedation given, give patient instructions): Diet for Stomach Ulcers and Gastritis (ED), Low Fat Diet (ED) Additional Instructions: Please return to the Emergency Department if symptoms worsen or any other concerns. Prescriptions: Sucralfate [Carafate] 1 gm PO BID #20 tablet Omeprazole 40 mg PO DAILY #14 capsule.dr Is patient prescribed a controlled substance at d/c from ED?: No Referrals: Catherine Goyal MD [Primary Care Provider] - 1-2 days Time of Disposition: 15:13
[2019-01-27 14:47] LABS: Basophils # (A) 0.1 k/uL (0-0.2); Basophils % (A) 1 %; Eosinophils # (A) 0.4 k/uL (0-0.7); Eosinophils % (A) 3 %; HCT 42.2 % (34.0-46.0); HGB 14.2 gm/dL (11.4-16.0); Lymphocytes % (A) 18 %; MCH 27.9 pg (25.0-35.0); MCHC 33.7 g/dL (31.0-37.0); MCV 82.7 fL (80.0-100.0); Mean Platelet Volume 5.5; Monocytes # (A) 0.4 k/uL (0-1.0); Monocytes % (A) 4 %; Neutrophils # (A) 7.9 k/uL (1.3-7.7); Neutrophils % (A) 72 %; Platelet Count 374 k/uL (150-450); RDW 13.6 % (11.5-15.5); WBC 10.9 k/uL (3.8-10.6)
[2019-01-27 14:52] LABS: Amorphous Sediment,Urine Rare /hpf; Appearance,Urine Cloudy (Clear); Bacteria,Urine Rare /hpf; Bilirubin,Urine Negative (Negative); Blood,Urine Moderate (Negative); Color,Urine Yellow; Glucose,Urine (UA) Negative (Negative); Hyaline Casts,Urine 1 /lpf (0-2); Ketones,Urine Negative (Negative); Leukocyte Esterase,Urine Moderate (Negative); Mucus,Urine Rare /hpf; Nitrite,Urine Negative (Negative); PH, Urine 6.5 (5.0-8.0); Protein,Urine Trace (Negative); RBC,Urine 4 /hpf (0-5); Specific Gravity,Urine 1.021 (1.001-1.035); Squamous Epithelial Cell,Urine 15 /hpf (0-4); Urobilinogen,Urine <2.0 mg/dL (<2.0)
[2019-01-27 14:57] LABS: ALT 33 U/L (9-52); AST 29 U/L (14-36); African American GFR (CKD) >90 (>60 ml/min/1.73 sqM); Albumin 4.2 g/dL (3.5-5.0); Alkaline Phosphatase 119 U/L (38-126); Amylase 37 U/L (30-110); Anion Gap 10 mmol/L; Blood Urea Nitrogen 10 mg/dL (7-17); Carbon Dioxide 23 mmol/L (22-30); Chloride 107 mmol/L (98-107); Glucose 106 mg/dL (74-99); Potassium 4.2 mmol/L (3.5-5.1); Sodium 140 mmol/L (137-145); Total Bilirubin 0.5 mg/dL (0.2-1.3); Total Protein 7.5 g/dL (6.3-8.2)
[2019-01-27 15:24] VITALS: BP 110/65; PULSE 90; RESP 16
== END 2019-01-27 15:14 | disposition home or self-care (01) ==
LOC: EC 13:48
DX: K29.70 Gastritis, unspecified, without bleeding (principal); K21.9 Gastro-esophageal reflux disease without esophagitis; R82.998 Other abnormal findings in urine; F17.200 Nicotine dependence, unspecified, uncomplicated; Z88.0 Allergy status to penicillin; Z79.899 Other long term (current) drug therapy; Z90.49 Acquired absence of other specified parts of digestive tract; Z86.14 Personal history of Methicillin resistant Staphylococcus aureus infection
CPT/HCPCS: 36415; 80053; 82150; 83690; 85025; 81001; 87086; 99284; 96374; 96375 ×2; 96361; J1200; J2765; C9113

== ENCOUNTER 2019-04-09 11:56 | Day surgery (SDC) | payer OTHER ==
[2019-04-05 12:07] VITALS: BMI 54.6
[2019-04-09] MEDS ORDERED: LIDOCAINE 1% 20 ML VIAL (10MG/ML) FOR IV START INTRADERMA PRN (12:44)
[2019-04-09] MEDS ORDERED: LACTATED RINGERS 1,000 ML IV SCH (12:44)
[2019-04-09 12:58] VITALS: RESP 18; TEMP 97
[2019-04-09] MEDS ORDERED: LIDOCAINE 1% INJ 10MG/ML (20 ML MDV) ONE (13:35)
[2019-04-09] MEDS ORDERED: PROPOFOL 10 MG/ML 20 ML VIAL IV ONE (13:35)
[2019-04-09] MEDS ORDERED: EPINEPHrine 10 ML SYRINGE (0.1 MG/ML) MISCELLANE ONE (13:57)
--- NOTE | 2019-04-09 14:07 | P.PCN ---
Date of Procedure: 04/09/19 Description of Procedure: BRIEF HISTORY: Patient is a 33-year-old female presenting for outpatient EGD for evaluation of epigastric abdominal pain. Patient reports frequent symptoms of early satiety, epigastric abdominal pain and regurgitation. PROCEDURE PERFORMED: Esophagogastroduodenoscopy with biopsy, Endo Clip placement and epinephrine injection. PREOPERATIVE DIAGNOSIS: Epigastric abdominal pain, reflux. ESTIMATED BLOOD LOSS: Minimal. IV sedation per anesthesia. PROCEDURE: After informed consent was obtained, the patient was brought into the endoscopy unit. IV sedation was administered by Anesthesia under continuous monitoring. Initially the Olympus GIF-190 video endoscope was inserted into the mouth. Esophagus intubated without any difficulty. It was gradually advanced into the stomach and duodenum and carefully examined. The bulb and the second part of the duodenum appeared normal, with biopsies taken. The scope at this time was withdrawn to the stomach, adequately insufflated with air, and upon careful examination, mucosa of the antrum, body, cardia and the fundus appeared normal, except for some mild scattered erythema in the antrum and body suggestive of gastritis with biopsies taken. The scope was then withdrawn into the esophagus. The GE junction was located at 37 cm from the incisors and biopsied. The esophagus appeared normal. There were no erosions or ulcerations, however some persistent oozing of blood was noted from the biopsy site at the GE junction likely secondary to retching during the procedure and likely superficial tear at that site. Due to the persistence of the losing this was treated with epinephrine injection, 2 mL and placement of 2 endoclips with hemostasis achieved. The patient otherwise tolerated the procedure very well. IMPRESSION: 1. Gastritis antrum body, biopsied. 2. Biopsies of the duodenum and GE junction. 3. Oozing from the GE junction at the biopsy site treated with Endo Clip placement 2 and epinephrine injection with hemostasis achieved. RECOMMENDATIONS: The findings of this examination were discussed with the patient and her family. Okay to resume diet, would have the patient take a full liquid diet today and advance tomorrow. Continue Prilosec therapy. Await results of biopsies. Follow up in gastroenterology clinic for results.
[2019-04-09 14:20] VITALS: BP 122/75; PULSE 75
== END 2019-04-09 14:39 | disposition home or self-care (01) ==
LOC: ORWHC2ENDO 11:56
PROVIDERS: ATTEND Internal Medicine
DX: K29.50 Unspecified chronic gastritis without bleeding (principal); K21.9 Gastro-esophageal reflux disease without esophagitis; K76.0 Fatty (change of) liver, not elsewhere classified; F41.9 Anxiety disorder, unspecified; F98.8 Other specified behavioral and emotional disorders with onset usually occurring in childhood and adolescence; F32.9 Major depressive disorder, single episode, unspecified; K08.109 Complete loss of teeth, unspecified cause, unspecified class; I49.9 Cardiac arrhythmia, unspecified; F17.210 Nicotine dependence, cigarettes, uncomplicated; E66.01 Morbid (severe) obesity due to excess calories; Z68.43 Body mass index [BMI] 50.0-59.9, adult; Z88.0 Allergy status to penicillin; Z88.8 Allergy status to other drugs, medicaments and biological substances; Z79.3 Long term (current) use of hormonal contraceptives; Z79.1 Long term (current) use of non-steroidal anti-inflammatories (NSAID); Z79.899 Other long term (current) drug therapy; Z90.49 Acquired absence of other specified parts of digestive tract; Z98.890 Other specified postprocedural states; Z83.3 Family history of diabetes mellitus; Z82.49 Family history of ischemic heart disease and other diseases of the circulatory system
CPT/HCPCS: 43239; 43243; 43255; 81025; 88305; J2001; J0171; J2704

== ENCOUNTER 2022-07-06 16:11 | Emergency (ER) | payer OTHER ==
[2022-07-06] MEDS ORDERED: IBUPROFEN 600 MG TAB PO STA (17:14)
--- NOTE | 2022-07-06 17:44 | XR ---
EXAMINATION TYPE: XR chest 2V DATE OF EXAM: 07/06/2022 COMPARISON: 07/29/2017 HISTORY: Cough and short of breath TECHNIQUE: 2 views FINDINGS: Heart and mediastinum are normal. Lungs are clear. Diaphragm is normal. Bony thorax is inta ct. IMPRESSION: Normal chest. No adverse change.
--- NOTE | 2022-07-06 17:51 | ED ---
URI HPI - General Chief Complaint: Upper Respiratory Infection Stated Complaint: SOB, cough Time Seen by Provider: 07/06/22 16:49 Source: patient Mode of arrival: ambulatory Limitations: no limitations - History of Present Illness Initial Comments: Patient is a 36-year-old female presenting with chief complaint of cough. Symptoms have been ongoing for the last 3 days. Patient also admits to nasal congestion. Patient states that at times cough is productive of yellow-green sputum. No fevers or chills. Hewas throat or ear pain. No chest pain. She does admit to some shortness of breath on exertion. Patient is a smoker. - Related Data Home Medications Medication Instructions Recorded Confirmed Omeprazole [PriLOSEC] 20 mg PO DAILY 01/27/19 04/05/19 Ibuprofen [Motrin Ib] 200 - 400 mg PO Q8H PRN 04/05/19 04/05/19 Medroxyprogesterone Acetate 150 mg IM ONCE 04/05/19 04/05/19 [Depo-Provera] Previous Rx's Medication Instructions Recorded Albuterol Sulfate [Albuterol 1 puff PO Q4-6H PRN #8.5 gm 07/06/22 Sulfate Hfa] methylPREDNISolone Dose Pack 4 mg PO DIRECTED #1 packet 07/06/22 [Medrol Dose Pack] Allergies Allergy/AdvReac Type Severity Reaction Status Date / Time amoxicillin [From Augmentin] Allergy Rash/Hives Verified 07/06/22 16:44 clavulanic acid Allergy Rash/Hives Verified 07/06/22 16:44 [From Augmentin] Review of Systems ROS Statement: Those systems with pertinent positive or pertinent negative responses have been documented in the HPI. ROS Other: All systems not noted in ROS Statement are negative. Past Medical History Past Medical History: GERD/Reflux, Liver Disease Additional Past Medical History / Comment(s): genital herpes, anxiety, fely. cyst, POS. Fatty liver disease. C/O hx heart beating fast, pain in lt shoulder - had echo stress test. History of Any Multi-Drug Resistant Organisms: MRSA Date of last positivie culture/infection: 2014 MDRO Source:: right buttock Past Surgical History: Cholecystectomy, Ear Surgery Additional Past Surgical History / Comment(s): Exc cyst lt wrist Past Anesthesia/Blood Transfusion Reactions: No Reported Reaction Past Psychological History: ADD/ADHD, Anxiety, Depression Smoking Status: Current every day smoker Past Alcohol Use History: None Reported Past Drug Use History: None Reported - Past Family History Mother Family Medical History: Diabetes Mellitus, Deep Vein Thrombosis (DVT) General Exam Limitations: no limitations General appearance: alert, in no apparent distress Head exam: Present: atraumatic, normocephalic, normal inspection Eye exam: Present: normal appearance Neck exam: Present: normal inspection, full ROM Respiratory exam: Present: normal lung sounds bilaterally. Absent: respiratory distress, wheezes, rales, rhonchi, stridor Cardiovascular Exam: Present: regular rate, normal rhythm, normal heart sounds. Absent: systolic murmur, diastolic murmur, rubs, gallop, clicks Neurological exam: Present: alert, oriented X3, CN II-XII intact Psychiatric exam: Present: normal affect, normal mood Skin exam: Present: warm, dry, intact, normal color. Absent: rash Course Vital Signs 07/06/22 07/06/22 16:40 19:15 Temperature 98.5 F 98.2 F Pulse Rate 78 76 Respiratory 22 20 Rate Blood Pressure 180/71 176/76 O2 Sat by Pulse 97 97 Oximetry Medical Decision Making - Medical Decision Making Was pt. sent in by a medical professional or institution (, PA, LIGHT ARMORED VEHICLE OFFICER, urgent care, hospital, or custodial...) When possible be specific @ -No Did you speak to anyone other than the patient for history (EMS, parent, family, police, friend...)? What history was obtained from this source @ -No Did you review nursing and triage notes (agree or disagree)? Why? @ -I reviewed and agree with nursing and triage notes Were old charts reviewed (outside hosp., previous admission, EMS record, old EKG, old radiological studies, urgent care reports/EKG's, custodial records)? Report findings @ -No old charts were reviewed Differential Diagnosis (chest pain, altered mental status, abdominal pain women, abdominal pain men, vaginal bleeding, weakness, fever, dyspnea, syncope, headache, dizziness, GI bleed, back pain, seizure, CVA, palpatations, mental health, musculoskeletal)? @ -Differential includes URI, pneumonia, bronchitis, this is not an all inclusive list EKG interpreted by me (3pts min.). @ -As above X-rays interpreted by me (1pt min.). @ -Chest x-ray shows no acute process CT interpreted by me (1pt min.). @ -None done U/S interpreted by me (1pt. min.). @ -None done What testing was considered but not performed or refused? (CT, X-rays, U/S, labs)? Why? @ -None What meds were considered but not given or refused? Why? @ -None Did you discuss the management of the patient with other professionals (professionals i.e. , PA, LIGHT ARMORED VEHICLE OFFICER, lab, RT, psych nurse, social work manager, paper cup machine tender, teacher, public relations officer, bottle caser)? Give summary @ -No Was smoking cessation discussed for >3mins.? @ -No Was critical care preformed (if so, how long)? @ -No Were there social determinants of health that impacted care today? How? (Homelessness, low income, unemployed, alcoholism, drug addiction, transportation, low edu. Level, literacy, decrease access to med. care, alf, rehab)? @ -No Was there de-escalation of care discussed even if they declined (Discuss DNR or withdrawal of care, Hospice)? DNR status @ -No What co-morbidities impacted this encounter? (DM, HTN, Smoking, COPD, CAD, Cancer, CVA, ARF, Chemo, Hep., AIDS, mental health diagnosis, sleep apnea, morbid obesity)? @ -None Was patient admitted / discharged? Hospital course, mention meds given and route, prescriptions, significant lab abnormalities, going to OR and other pertinent info. @ -Patient is a 36-year-old female presenting with chief complaint of URI-like symptoms. On physical examination heart and lungs are clear to auscultation. Vital signs are stable. Patient is negative for influenza, RSV, and Covid. Chest x-ray shows no acute process. Patient is educated on these findings on supportive treatment with bronchitis. Patient is on a prescription for albuterol inhaler and Medrol Dosepak. Follow-up with PCP. Report back to ER with any new or worsening symptoms. Discussed return parameters and answered all questions. Patient conveyed verbal understanding and agreed to the plan. I discussed this case in detail with my attending Dr. Gibson Undiagnosed new problem with uncertain prognosis? @ -No Drug Therapy requiring intensive monitoring for toxicity (Heparin, Nitro, Insulin, Cardizem)? @ -No Were any procedures done? @ -No Diagnosis/symptom? @ -Bronchitis Acute, or Chronic, or Acute on Chronic? @ -Acute Uncomplicated (without systemic symptoms) or Complicated (systemic symptoms)? @ -Uncomplicated Side effects of treatment? @ -No Exacerbation, Progression, or Severe Exacerbation? @ -No Poses a threat to life or bodily function? How? (Chest pain, [place], [place], pneumonia, PE, COPD, DKA, ARF, appy, cholecystitis, CVA, Diverticulitis, Homicidal, Suicidal, threat to staff... and all critical care pts) @ -No - Lab Data Lab Results 07/06/22 Range/Units 17:22 Influenza Type A (PCR) Not Detected (Not Detectd) Influenza Type B (PCR) Not Detected (Not Detectd) RSV (PCR) Not Detected (Not Detectd) SARS-CoV-2 (PCR) Not Detected (Not Detectd) Disposition Clinical Impression: Bronchitis Disposition: HOME SELF-CARE Condition: Good Instructions (If sedation given, give patient instructions): Acute Bronchitis (ED) Additional Instructions: Follow-up with PCP. Report back to ER with any new or worsening symptoms. Take medication as prescribed. Prescriptions: Albuterol Sulfate [Albuterol Sulfate Hfa] 1 puff PO Q4-6H PRN #8.5 gm PRN Reason: Shortness Of Breath methylPREDNISolone Dose Pack [Medrol Dose Pack] 4 mg PO DIRECTED #1 packet Is patient prescribed a controlled substance at d/c from ED?: No Referrals: Catherine Goyal MD [Primary Care Provider] - 1-2 days Time of Disposition: 19:03
[2022-07-06 19:17] VITALS: BP 176/76; PULSE 76; RESP 20; TEMP 98.2
== END 2022-07-06 19:19 | disposition home or self-care (01) ==
LOC: EC 16:11
DX: J40 Bronchitis, not specified as acute or chronic (principal); K21.9 Gastro-esophageal reflux disease without esophagitis; F17.200 Nicotine dependence, unspecified, uncomplicated; Z20.822 Contact with and (suspected) exposure to COVID-19; Z79.899 Other long term (current) drug therapy; Z88.0 Allergy status to penicillin; Z88.1 Allergy status to other antibiotic agents
CPT/HCPCS: 71046; 87636; 99285

== ENCOUNTER → 2022-07-06 | Outpatient (CLI) | payer OTHER ==
[2022-07-06 15:32] LABS: African American GFR (CKD) >90 (>60 ml/min/1.73 sqM); Blood Urea Nitrogen 12 mg/dL (7-17); Non-African American GFR(CKD) >90 (>60 ml/min/1.73 sqM)
--- NOTE | 2022-07-07 06:52 | CT ---
EXAMINATION TYPE: CT soft tissue neck w con DATE OF EXAM: 07/06/2022 HISTORY: enlarged lymph nodes left side of neck x 10 years. Swelling and/or mass. COMPARISON: NONE CT DLP: 1254.2 mGycm. Automated Exposure Control for Dose Reduction was Utilized. TECHNIQUE: CT scan of the neck is performed with IV Contrast, patient injected with 100 cc mL of Iso lowell 370, axial images are obtained, coronal and sagittal reformatted images are reviewed. FINDINGS: Evaluation slightly suboptimal secondary to large body habitus. Airway: There is 1.3 cm hypodense left thyroid nodule coronal image 56 upper pole level. Parotid/submandibular glands: No gross abnormality seen. Carotid/Vascular Structures: No significant abnormality is seen. Osseous Structures: No significant abnormality is seen. Other: Dependent fluid in the left maxillary sinus and to lesser degree right maxillary sinus. Right maxillary sinus has mild to moderate mucosal thickening. Severe opacification of ethmoid sinuses bila terally. Scattered prominent but subcentimeter lymph nodes throughout the neck bilaterally. For reference one of the largest in the left submandibular region above the hyoid bone measures 1.6 x 0.9 cm axial imag e 68. No definitive greater than 1.0 cm neck adenopathy. IMPRESSION: 1. No suspicious mass or greater than 1.0 cm neck adenopathy. 2. Acute on chronic paranasal sinus disease is noted as detailed above. 3. There is 1.3 cm left thyroid nodule. Advise thyroid ultrasound evaluation to further evaluate and/ or characterize if this is not known finding
== END | disposition home or self-care (01) ==
LOC: RADCTMAIN 14:31
PROVIDERS: ATTEND Otolaryngology
DX: E04.1 Nontoxic single thyroid nodule (principal); J32.8 Other chronic sinusitis; R22.1 Localized swelling, mass and lump, neck
CPT/HCPCS: 82565; 84520; 70491; 36415; Q9967

== ENCOUNTER 2022-09-17 19:37 | Emergency (ER) | payer OTHER ==
[2022-09-17 19:45] VITALS: TEMP 98.3
--- NOTE | 2022-09-17 20:14 | ED ---
General Adult HPI - General Chief complaint: Chest Pain Stated complaint: Chest pain Time Seen by Provider: 09/17/22 19:46 Source: patient, RN notes reviewed Mode of arrival: ambulatory Limitations: no limitations - History of Present Illness Initial comments: 36-year-old female with no significant past medical history presents to the emergency department with a chief complaint of chest pain. Patient reports right-sided chest pain that started approximately 1 month ago. She reports that it radiates to the left side of the chest in the last 24 hours. She reports that it is worse with movement. She denies any trauma or injury. He is complaining of accompanying symptoms of shortness of breath. She reports worsening shortness of breath upon exertion. She denies any fever, chills, palpitations, nausea, vomiting, abdominal pain. She is not taken any for his symptoms. - Related Data Home Medications Medication Instructions Recorded Confirmed Omeprazole [PriLOSEC] 20 mg PO DAILY 01/27/19 04/05/19 Ibuprofen [Motrin Ib] 200 - 400 mg PO Q8H PRN 04/05/19 04/05/19 Medroxyprogesterone Acetate 150 mg IM ONCE 04/05/19 04/05/19 [Depo-Provera] Previous Rx's Medication Instructions Recorded Albuterol Sulfate [Albuterol 1 puff PO Q4-6H PRN #8.5 gm 07/06/22 Sulfate Hfa] methylPREDNISolone Dose Pack 4 mg PO DIRECTED #1 packet 07/06/22 [Medrol Dose Pack] Allergies Allergy/AdvReac Type Severity Reaction Status Date / Time amoxicillin [From Augmentin] Allergy Rash/Hives Verified 09/17/22 19:42 clavulanic acid Allergy Rash/Hives Verified 09/17/22 19:42 [From Augmentin] Review of Systems ROS Statement: Those systems with pertinent positive or pertinent negative responses have been documented in the HPI. ROS Other: All systems not noted in ROS Statement are negative. Past Medical History Past Medical History: GERD/Reflux, Liver Disease Additional Past Medical History / Comment(s): genital herpes, anxiety, fely. cyst, POS. Fatty liver disease. C/O hx heart beating fast, pain in lt shoulder - had echo stress test. History of Any Multi-Drug Resistant Organisms: MRSA Date of last positivie culture/infection: 2014 MDRO Source:: right buttock Past Surgical History: Cholecystectomy, Ear Surgery Additional Past Surgical History / Comment(s): Exc cyst lt wrist Past Anesthesia/Blood Transfusion Reactions: No Reported Reaction Past Psychological History: ADD/ADHD, Anxiety, Depression Smoking Status: Current every day smoker Past Alcohol Use History: None Reported Past Drug Use History: None Reported - Past Family History Mother Family Medical History: Diabetes Mellitus, Deep Vein Thrombosis (DVT) General Exam - General Exam Comments Initial Comments: General: Alert, in no acute distress, she is obese Head: atraumatic normocephalic. Eyes PERRL, EOMI intact, mucous membranes moist Respiratory: Lungs clear to auscultation bilaterally Cardiovascular: Tachycardic Abdominal: Soft without guarding or rebound Extremities: Normal inspection with full range of motion and normal capillary refill Neuroogic: alert and oriented 3, CN II-XII intact, able to ambulate with steady gait Skin: warm dry and intact with normal color Limitations: no limitations Course Vital Signs 09/17/22 09/17/22 09/17/22 19:42 20:45 21:00 Temperature 98.3 F Pulse Rate 117 H 96 93 Respiratory 18 20 20 Rate Blood Pressure 178/80 136/77 131/89 O2 Sat by Pulse 99 97 96 Oximetry EKG Findings - EKG Comments: EKG Findings:: I interpreted the following: EKG performed at 19:51. Rate 104 bpm and sinus tachycardia. SC interval 140, QRS duration 93, QT/QTc 323/384 Medical Decision Making - Medical Decision Making Was pt. sent in by a medical professional or institution (Dr. PA, BIT GATHERER, urgent care, hospital, or detention...) When possible be specific @ -[No] Did you speak to anyone other than the patient for history (EMS, parent, family, police, friend...)? What history was obtained from this source @ -[No] Did you review nursing and triage notes (agree or disagree)? Why? @ -[I reviewed and agree with nursing and triage notes] Were old charts reviewed (outside hosp., previous admission, EMS record, old EKG, old radiological studies, urgent care reports/EKG's, detention records)? Report findings @ -[No old charts were reviewed] Differential Diagnosis (chest pain, altered mental status, abdominal pain women, abdominal pain men, vaginal bleeding, weakness, fever, dyspnea, syncope, headache, dizziness, GI bleed, back pain, seizure, CVA, palpatations, mental health, musculoskeletal)? @ -[not applicable] EKG interpreted by me (3pts min.). @ -[As above] X-rays interpreted by me (1pt min.). @ -Chest x-ray negative for any intra pleural process CT interpreted by me (1pt min.). @ -[None done] U/S interpreted by me (1pt. min.). @ -[None done] What testing was considered but not performed or refused? (CT, X-rays, U/S, labs)? Why? @ -[None] What meds were considered but not given or refused? Why? @ -[None] Did you discuss the management of the patient with other professionals (professionals i.e. , PA, BIT GATHERER, lab, RT, psych nurse, social media community manager, seam finisher, teacher, college service officer, bilingual case manager)? Give summary @ -[No] Was smoking cessation discussed for >3mins.? @ -[No] Was critical care preformed (if so, how long)? @ -[No] Were there social determinants of health that impacted care today? How? (Ho melessness, low income, unemployed, alcoholism, drug addiction, transportation, low edu. Level, literacy, decrease access to med. care, [facility], rehab)? @ -[No] Was there de-escalation of care discussed even if they declined (Discuss DNR or withdrawal of care, Hospice)? DNR status @ -[No] What co-morbidities impacted this encounter? (DM, HTN, Smoking, COPD, CAD, Cancer, CVA, ARF, Chemo, Hep., AIDS, mental health diagnosis, sleep apnea, morbid obesity)? @ -[None] Was patient admitted / discharged? Hospital course, mention meds given and route, prescriptions, significant lab abnormalities, going to OR and other pertinent info. @ -Discharged. This is a 36-year-old male who presents to the emergency department with chest pain. Patient had a thorough history and physical exam performed on the ED. Physical exam is essentially unremarkable. Heart rate regular rate and rhythm, lungs are to auscultation bilaterally, abdomen soft and nontender. Patient able to ambulate with a steady gait. No focal neuro deficits noted. Patient imaging performed which was negative. I discussed the results in detail with the patient verbalized understanding and al l questions were addressed. Patient was given Toradol and 500cc's of IV fluids for symptomatic relief on the ED. Return precautions were discussed at length. Patient discharged in stable condition. Case discussed with ELIEZER Quiles who agrees with plan of care Undiagnosed new problem with uncertain prognosis? @ -[No] Drug Therapy requiring intensive monitoring for toxicity (Heparin, Nitro, Insulin, Cardizem)? @ -[No] Were any procedures done? @ -[No] Diagnosis/symptom? @ -Chest pain Acute, or Chronic, or Acute on Chronic? @ -Acute Uncomplicated (without systemic symptoms) or Complicated (systemic symptoms)? @ -uncomplicated Side effects of treatment? @ -[No] Exacerbation, Progression, or Severe Exacerbation? @ -[No] Poses a threat to life or bodily function? How? (Chest pain, [place], [place], pneumonia, PE, COPD, DKA, ARF, appy, cholecystitis, CVA, Diverticulitis, Homicidal, Suicidal, threat to staff... and all critical care pts) @ -Low likelihood - Lab Data Result diagrams: 09/17/22 20:08 09/17/22 20:08 Lab Results 09/17/22 09/17/22 09/17/22 Range/Units 20:08 20:08 20:08 WBC 13.1 H (3.8-10.6) k/uL RBC 5.15 (3.80-5.40) m/uL Hgb 14.1 (11.4-16.0) gm/dL Hct 42.7 (34.0-46.0) % MCV 82.8 (80.0-100.0) fL MCH 27.5 (25.0-35.0) pg MCHC 33.2 (31.0-37.0) g/dL RDW 14.3 (11.5-15.5) % Plt Count 369 (150-450) k/uL MPV 7.5 Neutrophils % 67 % Lymphocytes % 23 % Monocytes % 5 % Eosinophils % 3 % Basophils % 1 % Neutrophils # 8.8 H (1.3-7.7) k/uL Lymphocytes # 3.0 (1.0-4.8) k/uL Monocytes # 0.7 (0-1.0) k/uL Eosinophils # 0.4 (0-0.7) k/uL Basophils # 0.1 (0-0.2) k/uL PT 9.8 (9.0-12.0) sec INR 0.9 (<1.2) APTT 25.7 (22.0-30.0) sec D-Dimer 0.55 (<0.60) mg/L FEU Sodium 140 (137-145) mmol/L Potassium 4.3 (3.5-5.1) mmol/L Chloride 105 (98-107) mmol/L Carbon Dioxide 23 (22-30) mmol/L Anion Gap 12 mmol/L BUN 15 (7-17) mg/dL Creatinine 0.77 (0.52-1.04) mg/dL Est GFR (CKD-EPI)AfAm >90 (>60 ml/min/1.73 sqM) Est GFR (CKD-EPI)NonAf >90 (>60 ml/min/1.73 sqM) Glucose 91 (74-99) mg/dL Calcium 9.2 (8.4-10.2) mg/dL Total Bilirubin 0.4 (0.2-1.3) mg/dL AST 28 (14-36) U/L ALT 31 (4-34) U/L Alkaline Phosphatase 118 (38-126) U/L Troponin I (0.000-0.034) ng/mL Total Protein 7.4 (6.3-8.2) g/dL Albumin 4.0 (3.5-5.0) g/dL Urine Color Urine Appearance (Clear) Urine pH (5.0-8.0) Ur Specific [place] (1.001-1.035) Urine Protein (Negative) Urine Glucose (UA) (Negative) Urine Ketones (Negative) Urine Blood (Negative) Urine Nitrite (Negative) Urine Bilirubin (Negative) Urine Urobilinogen (<2.0) mg/dL Ur Leukocyte Esterase (Negative) Urine RBC (0-5) /hpf Urine WBC (0-5) /hpf Ur Squamous Epith Cells (0-4) /hpf Urine Bacteria (None) /hpf Urine Mucus (None) /hpf Urine HCG, Qual (Not Detectd) Influenza Type A (PCR) (Not Detectd) Influenza Type B (PCR) (Not Detectd) RSV (PCR) (Not Detectd) SARS-CoV-2 (PCR) (Not Detectd) 09/17/22 09/17/22 09/17/22 Range/Units 20:08 20:08 20:13 WBC (3.8-10.6) k/uL RBC (3.80-5.40) m/uL Hgb (11.4-16.0) gm/dL Hct (34.0-46.0) % MCV (80.0-100.0) fL MCH (25.0-35.0) pg MCHC (31.0-37.0) g/dL RDW (11.5-15.5) % Plt Count (150-450) k/uL MPV Neutrophils % % Lymphocytes % % Monocytes % % Eosinophils % % Basophils % % Neutrophils # (1.3-7.7) k/uL Lymphocytes # (1.0-4.8) k/uL Monocytes # (0-1.0) k/uL Eosinophils # (0-0.7) k/uL Basophils # (0-0.2) k/uL PT (9.0-12.0) sec INR (<1.2) APTT (22.0-30.0) sec D-Dimer (<0.60) mg/L FEU Sodium (137-145) mmol/L Potassium (3.5-5.1) mmol/L Chloride (98-107) mmol/L Carbon Dioxide (22-30) mmol/L Anion Gap mmol/L BUN (7-17) mg/dL Creatinine (0.52-1.04) mg/dL Est GFR (CKD-EPI)AfAm (>60 ml/min/1.73 sqM) Est GFR (CKD-EPI)NonAf (>60 ml/min/1.73 sqM) Glucose (74-99) mg/dL Calcium (8.4-10.2) mg/dL Total Bilirubin (0.2-1.3) mg/dL AST (14-36) U/L ALT (4-34) U/L Alkaline Phosphatase (38-126) U/L Troponin I <0.012 (0.000-0.034) ng/mL Total Protein (6.3-8.2) g/dL Albumin (3.5-5.0) g/dL Urine Color Yellow Urine Appearance Cloudy H (Clear) Urine pH 5.5 (5.0-8.0) Ur Specific [place] 1.021 (1.001-1.035) Urine Protein Trace H (Negative) Urine Glucose (UA) Negative (Negative) Urine Ketones Negative (Negative) Urine Blood Moderate H (Negative) Urine Nitrite Negative (Negative) Urine Bilirubin Negative (Negative) Urine Urobilinogen <2.0 (<2.0) mg/dL Ur Leukocyte Esterase Small H (Negative) Urine RBC 3 (0-5) /hpf Urine WBC 5 (0-5) /hpf Ur Squamous Epith Cells 7 H (0-4) /hpf Urine Bacteria Rare H (None) /hpf Urine Mucus Rare H (None) /hpf Urine HCG, Qual (Not Detectd) Influenza Type A (PCR) Not Detected (Not Detectd) Influenza Type B (PCR) Not Detected (Not Detectd) RSV (PCR) Not Detected (Not Detectd) SARS-CoV-2 (PCR) Not Detected (Not Detectd) 09/17/22 Range/Units 20:13 WBC (3.8-10.6) k/uL RBC (3.80-5.40) m/uL Hgb (11.4-16.0) gm/dL Hct (34.0-46.0) % MCV (80.0-100.0) fL MCH (25.0-35.0) pg MCHC (31.0-37.0) g/dL RDW (11.5-15.5) % Plt Count (150-450) k/uL MPV Neutrophils % % Lymphocytes % % Monocytes % % Eosinophils % % Basophils % % Neutrophils # (1.3-7.7) k/uL Lymphocytes # (1.0-4.8) k/uL Monocytes # (0-1.0) k/uL Eosinophils # (0-0.7) k/uL Basophils # (0-0.2) k/uL PT (9.0-12.0) sec INR (<1.2) APTT (22.0-30.0) sec D-Dimer (<0.60) mg/L FEU Sodium (137-145) mmol/L Potassium (3.5-5.1) mmol/L Chloride (98-107) mmol/L Carbon Dioxide (22-30) mmol/L Anion Gap mmol/L BUN (7-17) mg/dL Creatinine (0.52-1.04) mg/dL Est GFR (CKD-EPI)AfAm (>60 ml/min/1.73 sqM) Est GFR (CKD-EPI)NonAf (>60 ml/min/1.73 sqM) Glucose (74-99) mg/dL Calcium (8.4-10.2) mg/dL Total Bilirubin (0.2-1.3) mg/dL AST (14-36) U/L ALT (4-34) U/L Alkaline Phosphatase (38-126) U/L Troponin I (0.000-0.034) ng/mL Total Protein (6.3-8.2) g/dL Albumin (3.5-5.0) g/dL Urine Color Urine Appearance (Clear) Urine pH (5.0-8.0) Ur Specific [place] (1.001-1.035) Urine Protein (Negative) Urine Glucose (UA) (Negative) Urine Ketones (Negative) Urine Blood (Negative) Urine Nitrite (Negative) Urine Bilirubin (Negative) Urine Urobilinogen (<2.0) mg/dL Ur Leukocyte Esterase (Negative) Urine RBC (0-5) /hpf Urine WBC (0-5) /hpf Ur Squamous Epith Cells (0-4) /hpf Urine Bacteria (None) /hpf Urine Mucus (None) /hpf Urine HCG, Qual Not Detected (Not Detectd) Influenza Type A (PCR) (Not Detectd) Influenza Type B (PCR) (Not Detectd) RSV (PCR) (Not Detectd) SARS-CoV-2 (PCR) (Not Detectd) Disposition Clinical Impression: Chest pain Disposition: HOME SELF-CARE Condition: Stable Instructions (If sedation given, give patient instructions): Chest Pain (ED), Costochondritis (ED) Additional Instructions: These return to the nearest emergency department if symptoms worsen or persist Is patient prescribed a controlled substance at d/c from ED?: No Referrals: Catherine Goyal MD [Primary Care Provider] - 1-2 days Time of Disposition: 21:49
[2022-09-17 20:15] LABS: Basophils # (A) 0.1 k/uL (0-0.2); Basophils % (A) 1 %; Eosinophils # (A) 0.4 k/uL (0-0.7); Eosinophils % (A) 3 %; HCT 42.7 % (34.0-46.0); HGB 14.1 gm/dL (11.4-16.0); Lymphocytes % (A) 23 %; MCH 27.5 pg (25.0-35.0); MCHC 33.2 g/dL (31.0-37.0); MCV 82.8 fL (80.0-100.0); Mean Platelet Volume 7.5; Monocytes # (A) 0.7 k/uL (0-1.0); Monocytes % (A) 5 %; Neutrophils # (A) 8.8 k/uL (1.3-7.7); Neutrophils % (A) 67 %; Platelet Count 369 k/uL (150-450); RBC 5.15 m/uL (3.80-5.40); RDW 14.3 % (11.5-15.5); WBC 13.1 k/uL (3.8-10.6)
[2022-09-17 20:28] LABS: ALT 31 U/L (4-34); AST 28 U/L (14-36); African American GFR (CKD) >90 (>60 ml/min/1.73 sqM); Alkaline Phosphatase 118 U/L (38-126); Anion Gap 12 mmol/L; Blood Urea Nitrogen 15 mg/dL (7-17); Calcium 9.2 mg/dL (8.4-10.2); Carbon Dioxide 23 mmol/L (22-30); Chloride 105 mmol/L (98-107); Glucose 91 mg/dL (74-99); Non-African American GFR(CKD) >90 (>60 ml/min/1.73 sqM); Potassium 4.3 mmol/L (3.5-5.1); Sodium 140 mmol/L (137-145); Total Bilirubin 0.4 mg/dL (0.2-1.3); Total Protein 7.4 g/dL (6.3-8.2)
[2022-09-17 20:30] LABS: INR 0.9 (<1.2); Partial Thromboplastin Time 25.7 sec (22.0-30.0); Prothrombin Time 9.8 sec (9.0-12.0)
--- NOTE | 2022-09-17 20:38 | XR ---
EXAMINATION TYPE: XR chest 2V DATE OF EXAM: 09/17/2022 8:33 PM COMPARISON: Chest radiographs from 07/06/2022 TECHNIQUE: XR chest 2V Frontal and lateral views of the chest. CLINICAL INDICATION:Female, 36 years old with history of chest pain; FINDINGS: Lungs/Pleura: There is no evidence of pleural effusion, focal consolidation, or pneumothorax. Pulmonary vascularity: Unremarkable. Heart/mediastinum: Cardiomediastinal silhouette is unremarkable. Musculoskeletal: No acute osseous pathology. IMPRESSION: No acute cardiopulmonary disease/process.
[2022-09-17 20:39] LABS: Appearance,Urine Cloudy (Clear); Bacteria,Urine Rare /hpf; Bilirubin,Urine Negative (Negative); Blood,Urine Moderate (Negative); Color,Urine Yellow; Glucose,Urine (UA) Negative (Negative); Ketones,Urine Negative (Negative); Leukocyte Esterase,Urine Small (Negative); Mucus,Urine Rare /hpf; Nitrite,Urine Negative (Negative); PH, Urine 5.5 (5.0-8.0); Protein,Urine Trace (Negative); RBC,Urine 3 /hpf (0-5); Specific Gravity,Urine 1.021 (1.001-1.035); Squamous Epithelial Cell,Urine 7 /hpf (0-4); Urobilinogen,Urine <2.0 mg/dL (<2.0); WBC,Urine 5 /hpf (0-5)
[2022-09-17] MEDS ORDERED: SODIUM CHLORIDE 0.9% 500 ML 500 ML IV ONE (20:50)
[2022-09-17] MEDS ORDERED: KETOROLAC 15 MG/ML 1 ML VIAL IVP STA (20:50)
[2022-09-17 21:04] VITALS: RESP 20
[2022-09-17 22:41] VITALS: BP 130/86; PULSE 90
== END 2022-09-17 22:42 | disposition home or self-care (01) ==
LOC: EC 19:37
DX: R07.89 Other chest pain (principal); K21.9 Gastro-esophageal reflux disease without esophagitis; F17.200 Nicotine dependence, unspecified, uncomplicated; Z20.822 Contact with and (suspected) exposure to COVID-19; Z79.899 Other long term (current) drug therapy; Z88.0 Allergy status to penicillin; Z88.1 Allergy status to other antibiotic agents
CPT/HCPCS: 36415; 93005; 85379; 80053; 84484; 85025; 85610; 85730; 81001; 81025; 87636; 71046; 99285; 96374; J1885

== ENCOUNTER 2023-02-04 15:12 | Emergency (ER) | payer OTHER ==
[2023-02-04] MEDS ORDERED: DIPH,PERTUS(ACELL)TETVAC-LF 0.5 ML VIAL IM ONE (15:56)
--- NOTE | 2023-02-04 15:59 | ED ---
Skin/Abscess/FB HPI - General Chief complaint: Skin/Abscess/Foreign Body Stated complaint: Abd sore Time Seen by Provider: 02/04/23 15:37 Source: patient, RN notes reviewed, old records reviewed Mode of arrival: ambulatory Limitations: no limitations - History of Present Illness Initial comments: 37-year-old nontoxic-appearing female presents to the emergency room with abscess to her lower abdomen for the past 4 days. States it has been draining. Does have a history of MRSA. Patient denies any fevers. MD complaint: abscess/boil -: days(s) (4) Tetanus Up to Date: no Severity scale (1-10): 9 Quality: constant Consistency: constant Improves with: none Worsens with: palpation Context: other (hx of mrsa) Associated symptoms: denies other symptoms Treatments Prior to Arrival: none - Related Data Home Medications Medication Instructions Recorded Confirmed Omeprazole [PriLOSEC] 20 mg PO DAILY 01/27/19 04/05/19 Ibuprofen [Motrin Ib] 200 - 400 mg PO Q8H PRN 04/05/19 04/05/19 Medroxyprogesterone Acetate 150 mg IM ONCE 04/05/19 04/05/19 [Depo-Provera] Previous Rx's Medication Instructions Recorded Albuterol Sulfate [Albuterol 1 puff PO Q4-6H PRN #8.5 gm 07/06/22 Sulfate Hfa] methylPREDNISolone Dose Pack 4 mg PO DIRECTED #1 packet 07/06/22 [Medrol Dose Pack] Clindamycin [Cleocin] 450 mg PO Q8H 7 Days #63 cap 02/04/23 Allergies Allergy/AdvReac Type Severity Reaction Status Date / Time amoxicillin [From Augmentin] Allergy Rash/Hives Verified 09/17/22 19:42 clavulanic acid Allergy Rash/Hives Verified 09/17/22 19:42 [From Augmentin] Review of Systems ROS Statement: Those systems with pertinent positive or pertinent negative responses have been documented in the HPI. ROS Other: All systems not noted in ROS Statement are negative. Past Medical History Past Medical History: GERD/Reflux, Liver Disease Additional Past Medical History / Comment(s): genital herpes, anxiety, fely. cyst, POS. Fatty liver disease. C/O hx heart beating fast, pain in lt shoulder - had echo stress test. History of Any Multi-Drug Resistant Organisms: MRSA Date of last positivie culture/infection: 2014 MDRO Source:: right buttock Past Surgical History: Cholecystectomy, Ear Surgery Additional Past Surgical History / Comment(s): Exc cyst lt wrist Past Anesthesia/Blood Transfusion Reactions: No Reported Reaction Past Psychological History: ADD/ADHD, Anxiety, Depression Smoking Status: Current every day smoker Past Alcohol Use History: None Reported Past Drug Use History: None Reported - Past Family History Mother Family Medical History: Diabetes Mellitus, Deep Vein Thrombosis (DVT) General Exam Limitations: no limitations General appearance: alert, in no apparent distress Head exam: Present: atraumatic, normocephalic Eye exam: Present: normal appearance. Absent: scleral icterus, conjunctival injection, periorbital swelling Respiratory exam: Absent: respiratory distress, accessory muscle use Cardiovascular Exam: Present: regular rate GI/Abdominal exam: Present: soft, tenderness (abscess approx 4cm draining purulent drainage with surrounding cellulitis). Absent: distended Extremities exam: Present: full ROM, normal capillary refill. Absent: tenderness Neurological exam: Present: alert, oriented X3, normal gait Psychiatric exam: Present: normal affect, normal mood Skin exam: Present: warm. Absent: cyanosis, diaphoretic Course Vital Signs 02/04/23 15:13 Temperature 98.7 F Pulse Rate 100 Respiratory 20 Rate Blood Pressure 145/86 O2 Sat by Pulse 98 Oximetry Medical Decision Making - Medical Decision Making Was pt. sent in by a medical professional or institution (, PA, [employer]TER, urgent care, hospital, or alf...) When possible be specific @ -No Did you speak to anyone other than the patient for history (EMS, parent, family, police, friend...)? What history was obtained from this source @ -No Did you review nursing and triage notes (agree or disagree)? Why? @ -I reviewed and agree with nursing and triage notes Were old charts reviewed (outside hosp., previous admission, EMS record, old EKG, old radiological studies, urgent care reports/EKG's, alf records)? Report findings @ -No old charts were reviewed Differential Diagnosis (chest pain, altered mental status, abdominal pain women, abdominal pain men, vaginal bleeding, weakness, fever, dyspnea, syncope, headache, dizziness, GI bleed, back pain, seizure, CVA, palpatations, mental health, musculoskeletal)? @ -Abscess, cellulitis, folliculitis EKG interpreted by me (3pts min.). @ -n/a X-rays interpreted by me (1pt min.). @ -None done CT interpreted by me (1pt min.). @ -None done U/S interpreted by me (1pt. min.). @ -None done What testing was considered but not performed or refused? (CT, X-rays, U/S, labs)? Why? @ -None What meds were considered but not given or refused? Why? @ -None Did you discuss the management of the patient with other professionals (professionals i.e. , PA, [employer]ANTER, lab, RT, psych nurse, clinical social work aide, sole stapler welt, teacher, disability hearing officer, director case)? Give summary @ -No Was smoking cessation discussed for >3mins.? @ -No Was critical care preformed (if so, how long)? @ -No Were there social determinants of health that impacted care today? How? (Homelessness, low income, unemployed, alcoholism, drug addiction, transportation, low edu. Level, literacy, decrease access to med. care, [facility], rehab)? @ -No Was there de-escalation of care discussed even if they declined (Discuss DNR or withdrawal of care, Hospice)? DNR status @ -No What co-morbidities impacted this encounter? (DM, HTN, Smoking, COPD, CAD, Cancer, CVA, ARF, Chemo, Hep., AIDS, mental health diagnosis, sleep apnea, morbid obesity)? @ -Morbid obesity, MRSA Was patient admitted / discharged? Hospital course, mention meds given and route, prescriptions, significant lab abnormalities, going to OR and other pertinent info. @ -Discharged 37-year-old nontoxic-appearing female presents to the emergency room with abscess to her lower abdomen for the past 4 days. States it has been draining. Does have a history of MRSA. Patient denies any fevers. Wound draining. Culture was sent. Patient will be updated on her tetanus shot. Case discussed with Dr. Muñoz who recommended clindamycin. Follow-up with the primary care doctor next week. Undiagnosed new problem with uncertain prognosis? @ -No Drug Therapy requiring intensive monitoring for toxicity (Heparin, Nitro, Insulin, Cardizem)? @ -No Were any procedures done? @ -No Diagnosis/symptom? @ -Abscess Acute, or Chronic, or Acute on Chronic? @ -Acute Uncomplicated (without systemic symptoms) or Complicated (systemic symptoms)? @ -Uncomplicated Side effects of treatment? @ -No Exacerbation, Progression, or Severe Exacerbation? @ -No Poses a threat to life or bodily function? How? (Chest pain, [place], [place], pneumonia, PE, COPD, DKA, ARF, appy, cholecystitis, CVA, Diverticulitis, Homicidal, Suicidal, threat to staff... and all critical care pts) @ -No Disposition Clinical Impression: Abscess, abdomen Disposition: HOME SELF-CARE Condition: Good Instructions (If sedation given, give patient instructions): Abscess (ED) Additional Instructions: Warm moist compresses multiple times a day to promote drainage. Take antibiotics as prescribed and follow-up with the primary care doctor next week. Prescriptions: Clindamycin [Cleocin] 450 mg PO Q8H 7 Days #63 cap Is patient prescribed a controlled substance at d/c from ED?: No Referrals: Catherine Goyal MD [Primary Care Provider] - 1-2 days Time of Disposition: 16:11
[2023-02-04 16:56] VITALS: BP 137/79; PULSE 82; RESP 18; TEMP 98.4
== END 2023-02-04 16:55 | disposition home or self-care (01) ==
LOC: EC 15:12
DX: L02.211 Cutaneous abscess of abdominal wall (principal); K21.9 Gastro-esophageal reflux disease without esophagitis; F41.9 Anxiety disorder, unspecified; F32.A Depression, unspecified; F17.200 Nicotine dependence, unspecified, uncomplicated; Z88.0 Allergy status to penicillin; Z88.8 Allergy status to other drugs, medicaments and biological substances; Z23 Encounter for immunization; Z79.899 Other long term (current) drug therapy
CPT/HCPCS: 87070; 87205; 90471; 90715; 99282

== ENCOUNTER 2023-05-20 11:55 | Emergency (ER) | payer OTHER ==
[2023-05-20 12:05] VITALS: RESP 20
[2023-05-20] MEDS: FAMOTIDINE 20 MG/2 ML VIAL IV STA (12:08)
[2023-05-20] MEDS: SODIUM CHLORIDE 0.9% 1,000 ML IV ONE (12:12)
[2023-05-20] MEDS: methylPREDNISolone SOD SUCCI 125 MG/2 ML VIAL IV STA (12:12)
--- NOTE | 2023-05-20 12:35 | XR ---
EXAMINATION TYPE: XR chest 2V DATE OF EXAM: 05/20/2023 COMPARISON: 09/17/2022 HISTORY: Shortness of breath TECHNIQUE: Frontal and lateral views of the chest are obtained. FINDINGS: There is no focal air space opacity, pleural effusion, or pneumothorax seen. The cardiac silhouette size is within normal limits. The osseous structures are intact. IMPRESSION: No acute cardiopulmonary process.
--- NOTE | 2023-05-20 13:04 | ED ---
Allergic Reaction HPI - General Chief complaint: Allergic Reaction Stated complaint: Allergic Reaction Time Seen by Provider: 05/20/23 11:56 Source: patient, EMS, RN notes reviewed Mode of arrival: EMS Limitations: no limitations - History of Present Illness Initial Comments: 37-year-old female presents emergency department chief complaint allergic react ion. Patient states she took Augmentin for the first time approximately an hour after she started having swelling rash and difficulty breathing all over. Patient states that she has never had this reaction before. Patient states that she took Benadryl prior to arrival. Patient was given Zofran by EMS no steroids. She states she been sick for 2 weeks and this is why she has been placed on Augmentin. - Related Data Home Medications Medication Instructions Recorded Confirmed Omeprazole [PriLOSEC] 20 mg PO DAILY 01/27/19 04/05/19 Ibuprofen [Motrin Ib] 200 - 400 mg PO Q8H PRN 04/05/19 04/05/19 Medroxyprogesterone Acetate 150 mg IM ONCE 04/05/19 04/05/19 [Depo-Provera] Previous Rx's Medication Instructions Recorded Albuterol Sulfate [Albuterol 1 puff PO Q4-6H PRN #8.5 gm 07/06/22 Sulfate Hfa] methylPREDNISolone Dose Pack 4 mg PO DIRECTED #1 packet 07/06/22 [Medrol Dose Pack] Clindamycin [Cleocin] 450 mg PO Q8H 7 Days #63 cap 02/04/23 Azithromycin [Zithromax Z Pack] 0 tab PO DIRECTED #6 tab 05/20/23 predniSONE 50 mg PO DAILY #5 tab 05/20/23 Allergies Allergy/AdvReac Type Severity Reaction Status Date / Time amoxicillin [From Augmentin] Allergy Swelling Verified 05/20/23 13:27 clavulanic acid Allergy Rash/Hives Verified 05/20/23 13:27 [From Augmentin] Review of Systems ROS Statement: Those systems with pertinent positive or pertinent negative responses have been documented in the HPI. ROS Other: All systems not noted in ROS Statement are negative. Past Medical History Past Medical History: GERD/Reflux, Liver Disease Additional Past Medical History / Comment(s): genital herpes, anxiety, fely. cyst, POS. Fatty liver disease. C/O hx heart beating fast, pain in lt shoulder - had echo stress test. History of Any Multi-Drug Resistant Organisms: MRSA Date of last positivie culture/infection: 2014 MDRO Source:: right buttock Past Surgical History: Cholecystectomy, Ear Surgery Additional Past Surgical History / Comment(s): Exc cyst lt wrist Past Anesthesia/Blood Transfusion Reactions: No Reported Reaction Past Psychological History: ADD/ADHD, Anxiety, Depression Smoking Status: Current every day smoker Past Alcohol Use History: None Reported Past Drug Use History: None Reported - Past Family History Mother Family Medical History: Diabetes Mellitus, Deep Vein Thrombosis (DVT) General Exam Limitations: no limitations General appearance: alert, in no apparent distress Head exam: Present: atraumatic, normocephalic, normal inspection Eye exam: Present: normal appearance, PERRL, EOMI. Absent: scleral icterus, conjunctival injection, periorbital swelling ENT exam: Present: normal exam, mucous membranes moist Neck exam: Present: normal inspection, full ROM. Absent: tenderness, meningismus, lymphadenopathy Respiratory exam: Present: wheezes. Absent: normal lung sounds bilaterally, respiratory distress, rales, rhonchi, stridor Cardiovascular Exam: Present: regular rate, normal rhythm, normal heart sounds. Absent: systolic murmur, diastolic murmur, rubs, gallop, clicks GI/Abdominal exam: Present: soft, normal bowel sounds. Absent: distended, tenderness, guarding, rebound, rigid Neurological exam: Present: alert, oriented X3, CN II-XII intact Skin exam: Present: rash, urticaria Course Vital Signs 05/20/23 05/20/23 11:56 13:19 Temperature 97.7 F 98 F Pulse Rate 97 89 Respiratory 20 20 Rate Blood Pressure 144/86 108/88 O2 Sat by Pulse 95 98 Oximetry Medical Decision Making - Medical Decision Making Was pt. sent in by a medical professional or institution (, PA, [employer] POL[employer]ER, urgent care, hospital, or prison...) When possible be specific @ -No Did you speak to anyone other than the patient for history (EMS, parent, family, police, friend...)? What history was obtained from this source @ -No Did you review nursing and triage notes (agree or disagree)? Why? @ -I reviewed and agree with nursing and triage notes Were old charts reviewed (outside hosp., previous admission, EMS record, old EKG, old radiological studies, urgent care reports/EKG's, prison records)? Report findings @ -No old charts were reviewed Differential Diagnosis (chest pain, altered mental status, abdominal pain women, abdominal pain men, vaginal bleeding, weakness, fever, dyspnea, syncope, headache, dizziness, GI bleed, back pain, seizure, CVA, palpatations, mental health, musculoskeletal)? @ -[Allergic reaction, COVID 19, RSV, influenza, pneumonia, acute bronchitis, URI, this list is not all inclusive EKG interpreted by me (3pts min.). @ -None X-rays interpreted by me (1pt min.). @ -[Chest x-ray 2 view no acute cardiopulmonary process CT interpreted by me (1pt min.). @ -[None done U/S interpreted by me (1pt. min.). @ -None done What testing was considered but not performed or refused? (CT, X-rays, U/S, labs)? Why? @ -None What meds were considered but not given or refused? Why? @ -None Did you discuss the management of the patient with other professionals (professionals i.e. , PA, S[employer] POL[employer]ER, lab, RT, psych nurse, high school social studies teacher, fruit distributor, teacher, credit products officer, watch case polisher)? Give summary @ -No Was smoking cessation discussed for >3mins.? @ -No Was critical care preformed (if so, how long)? @ -No Were there social determinants of health that impacted care today? How? (Homelessness, low income, unemployed, alcoholism, drug addiction, transportation, low edu. Level, literacy, decrease access to med. care, penitentiary, rehab)? @ -No Was there de-escalation of care discussed even if they declined (Discuss DNR or withdrawal of care, Hospice)? DNR status @ -No What co-morbidities impacted this encounter? (DM, HTN, Smoking, COPD, CAD, Cancer, CVA, ARF, Chemo, Hep., AIDS, mental health diagnosis, sleep apnea, morbid obesity)? @ -None Was patient admitted / discharged? Hospital course, mention meds given and route, prescriptions, significant lab abnormalities, going to OR and other pertinent info. @ -[Discharge patient feels great improved after Solu-Medrol, she took Benadryl at home and Pepcid here in emergency department. Patient has no shortness of br eath rash has resolved. Patient be discharged with steroids return parameters brook Undiagnosed new problem with uncertain prognosis? @ -No Drug Therapy requiring intensive monitoring for toxicity (Heparin, Nitro, Insulin, Cardizem)? @ -No Were any procedures done? @ -No Diagnosis/symptom? @ -[Allergic reaction Acute, or Chronic, or Acute on Chronic? @ -Acute Uncomplicated (without systemic symptoms) or Complicated (systemic symptoms)? @ -[Complicated Side effects of treatment? @ -[No Exacerbation, Progression, or Severe Exacerbation? @ -No Poses a threat to life or bodily function? How? (Chest pain, [place], [place], pneumonia, PE, COPD, DKA, ARF, appy, cholecystitis, CVA, Diverticulitis, Homicidal, Suicidal, threat to staff... and all critical care pts) @ -[Yes allergic reaction - Lab Data Lab Results 05/20/23 Range/Units 12:10 Influenza Type A (PCR) Not Detected (Not Detectd) Influenza Type B (PCR) Not Detected (Not Detectd) RSV (PCR) Not Detected (Not Detectd) SARS-CoV-2 (PCR) Not Detected (Not Detectd) Disposition Clinical Impression: Allergic reaction Disposition: HOME SELF-CARE Condition: Stable Instructions (If sedation given, give patient instructions): Anaphylaxis (ED) Additional Instructions: Please return to the Emergency Department if symptoms worsen or any other concerns. Prescriptions: predniSONE 50 mg PO DAILY #5 tab Azithromycin [Zithromax Z Pack] 0 tab PO DIRECTED #6 tab Is patient prescribed a controlled substance at d/c from ED?: No Referrals: Catherine Goyal MD [Primary Care Provider] - 1-2 days Time of Disposition: 13:04
[2023-05-20 13:27] VITALS: BP 108/88; TEMP 98
[2023-05-20 15:17] VITALS: PULSE 89
== END 2023-05-20 13:27 | disposition home or self-care (01) ==
LOC: EC 11:55
DX: T78.40XA Allergy, unspecified, initial encounter (principal); K21.9 Gastro-esophageal reflux disease without esophagitis; F17.200 Nicotine dependence, unspecified, uncomplicated; Z88.0 Allergy status to penicillin; Z88.8 Allergy status to other drugs, medicaments and biological substances; Z86.59 Personal history of other mental and behavioral disorders; Z79.899 Other long term (current) drug therapy; Z20.822 Contact with and (suspected) exposure to COVID-19
CPT/HCPCS: 87636; 71046; 99284; 96374; 96375; 96361; J2930; J3490

== ENCOUNTER 2023-08-03 18:07 | Emergency (ER) | payer OTHER ==
[2023-08-03 18:49] VITALS: RESP 18; TEMP 97.8
[2023-08-03 20:06] LABS: Appearance,Urine Clear (Clear); Bilirubin,Urine Negative (Negative); Blood,Urine Small (Negative); Color,Urine Colorless; Glucose,Urine (UA) Negative (Negative); Ketones,Urine Negative (Negative); Leukocyte Esterase,Urine Negative (Negative); Nitrite,Urine Negative (Negative); PH, Urine 6.5 (5.0-8.0); Protein,Urine Negative (Negative); RBC,Urine 2 /hpf (0-5); Specific Gravity,Urine 1.013 (1.001-1.035); Squamous Epithelial Cell,Urine 4 /hpf (0-4); Urobilinogen,Urine <2.0 mg/dL (<2.0); WBC,Urine 4 /hpf (0-5)
[2023-08-03] MEDS: SODIUM CHLORIDE 0.9% 1,000 ML IV STA (20:27)
[2023-08-03] MEDS: KETOROLAC 15 MG/ML 1 ML VIAL IVP STA (20:28)
[2023-08-03] MEDS: PANTOPRAZOLE 40 MG/10 ML VIAL IVP STA (20:29)
[2023-08-03] MEDS: ONDANSETRON 4 MG/2 ML VIAL IVP STA (20:29)
[2023-08-03 20:39] LABS: Basophils # (A) 0.1 k/uL (0-0.2); Basophils % (A) 1 %; Eosinophils # (A) 0.4 k/uL (0-0.7); Eosinophils % (A) 3 %; HGB 13.9 gm/dL (11.4-16.0); Lymphocytes # (A) 2.9 k/uL (1.0-4.8); Lymphocytes % (A) 23 %; MCH 28.2 pg (25.0-35.0); MCHC 32.4 g/dL (31.0-37.0); MCV 87.1 fL (80.0-100.0); Mean Platelet Volume 7.2; Monocytes # (A) 0.5 k/uL (0-1.0); Monocytes % (A) 4 %; Neutrophils # (A) 8.7 k/uL (1.3-7.7); Neutrophils % (A) 68 %; Platelet Count 329 k/uL (150-450); RBC 4.93 m/uL (3.80-5.40); RDW 13.5 % (11.5-15.5); WBC 12.7 k/uL (3.8-10.6)
[2023-08-03 20:48] LABS: INR 0.9 (<1.2); Partial Thromboplastin Time 25.8 sec (22.0-30.0); Prothrombin Time 10.4 sec (10.0-12.5)
--- NOTE | 2023-08-03 22:10 | ED ---
General Adult HPI <Adams Becerra - Last Filed: 08/04/23 03:05> - General Source: patient, RN notes reviewed, old records reviewed Mode of arrival: ambulatory Limitations: no limitations <Jose Burton - Last Filed: 08/06/23 20:47> - General Chief complaint: Abdominal Pain Stated complaint: abd pain Time Seen by Provider: 08/03/23 19:18 - History of Present Illness Initial comments: Is a 37-year-old female presents emergency department with multiple weeks of abdominal pain. States it seems to travel around her abdomen. Has a history of acid reflux, liver disease. States it was at 1 point in her right lower quadrant now is more in her right upper quadrant. It is intermittent nausea, vomiting, diarrhea. History of cystectomy. Denies any cardiac history. No chest pain, fevers, chills, cough. Denies any vaginal bleeding or discharge. Denies any urinary complaints. Presents for further evaluation at this time. (Jose Burton) - Related Data Home Medications Medication Instructions Recorded Confirmed Omeprazole [PriLOSEC] 20 mg PO DAILY 01/27/19 04/05/19 Ibuprofen [Motrin Ib] 200 - 400 mg PO Q8H PRN 04/05/19 04/05/19 Medroxyprogesterone Acetate 150 mg IM ONCE 04/05/19 04/05/19 [Depo-Provera] Previous Rx's Medication Instructions Recorded Albuterol Sulfate [Albuterol 1 puff PO Q4-6H PRN #8.5 gm 07/06/22 Sulfate Hfa] methylPREDNISolone Dose Pack 4 mg PO DIRECTED #1 packet 07/06/22 [Medrol Dose Pack] Clindamycin [Cleocin] 450 mg PO Q8H 7 Days #63 cap 02/04/23 Azithromycin [Zithromax Z Pack] 0 tab PO DIRECTED #6 tab 05/20/23 predniSONE 50 mg PO DAILY #5 tab 05/20/23 Allergies Allergy/AdvReac Type Severity Reaction Status Date / Time amoxicillin [From Augmentin] Allergy Swelling Verified 08/03/23 18:22 clavulanic acid Allergy Rash/Hives Verified 08/03/23 18:22 [From Augmentin] Review of Systems ROS Other: All systems not noted in ROS Statement are negative. <Adams Becerra - Last Filed: 08/04/23 03:05> ROS Other: All systems not noted in ROS Statement are negative. <MichealJose - Last Filed: 08/06/23 20:47> ROS Statement: Those systems with pertinent positive or pertinent negative responses have been documented in the HPI. Review of Systems: CONST: Denies fever EYES: Denies blurry vision ENT: Denies nasal congestion C/V: Denies Chest pain RESP: Denies shortness of breath GI: Endorses abdominal pain : Denies dysuria SKIN: Denies rash. MSK: Denies joint pain. NEURO: Denies headache (Jose Burton) Past Medical History Past Medical History: GERD/Reflux, Liver Disease Additional Past Medical History / Comment(s): genital herpes, anxiety, fely. cyst, POS. Fatty liver disease. C/O hx heart beating fast, pain in lt shoulder - had echo stress test. History of Any Multi-Drug Resistant Organisms: MRSA Date of last positivie culture/infection: 2014 MDRO Source:: right buttock Past Surgical History: Cholecystectomy, Ear Surgery Additional Past Surgical History / Comment(s): Exc cyst lt wrist Past Anesthesia/Blood Transfusion Reactions: No Reported Reaction Past Psychological History: ADD/ADHD, Anxiety, Depression Smoking Status: Current every day smoker Past Alcohol Use History: None Reported Past Drug Use History: None Reported - Past Family History Mother Family Medical History: Diabetes Mellitus, Deep Vein Thrombosis (DVT) <MichealJose - Last Filed: 08/06/23 20:47> General Exam Limitations: no limitations <Jose Burton - Last Filed: 08/06/23 20:47> - General Exam Comments Initial Comments: General: Appears in no acute distress. HEAD: Normal with no signs of head trauma. EYES: PERRLA, EOMI, conjunctiva normal, no discharge. ENT: Hearing grossly intact, normal oropharynx. RESPIRATORY: Clear breath sounds bilaterally. No wheezes, rales, or rhonchi. C/V: Regular rate and rhythm. S1 and S2 auscultated, no edema, peripheral pulses 2+ and intact throughout ABD: Abdomen soft, nondistended. Tender to palpation over the right abdomen. No guarding. No rebound tenderness. No peritoneal signs. EXT: Normal range of motion, no obvious deformity SKIN: No rashes or lesions observed on exposed skin. NEURO: Alert and oriented x 4. (Jose Burton) Course Vital Signs 08/03/23 08/03/23 08/04/23 18:21 23:12 03:25 Temperature 97.8 F Pulse Rate 90 82 88 Respiratory 18 18 18 Rate Blood Pressure 182/83 149/78 142/82 O2 Sat by Pulse 98 97 97 Oximetry Medical Decision Making - Lab Data Result diagrams: 08/03/23 20:15 08/03/23 20:15 <NadeemAdams cruz - Last Filed: 08/04/23 03:05> - Lab Data Result diagrams: 08/03/23 20:15 08/03/23 20:15 - EKG Data -: EKG Interpreted by Me <Jose Burton - Last Filed: 08/06/23 20:47> - Medical Decision Making Was pt. sent in by a medical professional or institution (, PA, MEDICAL PARASITOLOGIST, urgent care, hospital, or residential...) When possible be specific @ -No Did you speak to anyone other than the patient for history (EMS, parent, family, police, friend...)? What history was obtained from this source @ -No Did you review nursing and triage notes (agree or disagree)? Why? @ -I reviewed and agree with nursing and triage notes Were old charts reviewed (outside hosp., previous admission, EMS record, old EKG, old radiological studies, urgent care reports/EKG's, residential records)? Report findings @ -Old charts reviewed. Differential Diagnosis (chest pain, altered mental status, abdominal pain women, abdominal pain men, vaginal bleeding, weakness, fever, dyspnea, syncope, headache, dizziness, GI bleed, back pain, seizure, CVA, palpatations, mental health, musculoskeletal)? @ -Differential Abdominal Pain Women: Appendicitis, Cholecystitis, diverticulosis, ischemic bowel, pancreatitis, hepatitis, UTI, gastroenteritis, AAA, incarcerated hernia, bowel obstruction, constipation, inflammatory bowel, hepatitis, peptic ulcer disease, splenic infarction, perforated viscus, vulvitis, ovarian torsion, PID, kidney stone, placenta abruption, this is not meant to be an all-inclusive list EKG interpreted by me (3pts min.). @ -As above X-rays interpreted by me (1pt min.). @ -None done CT interpreted by me (1pt min.). @ -Pending U/S interpreted by me (1pt. min.). @ -None done What testing was considered but not performed or refused? (CT, X-rays, U/S, labs)? Why? @ -None What meds were considered but not given or refused? Why? @ -None Did you discuss the management of the patient with other professionals (professionals i.e. , PA, MEDICAL PARASITOLOGIST, lab, RT, psych nurse, director social welfare, industrial technician, teacher, classification officer, trimming caser)? Give summary @ -No Was smoking cessation discussed for >3mins.? @ -No Was critical care preformed (if so, how long)? @ -No Were there social determinants of health that impacted care today? How? (Homelessness, low income, unemployed, alcoholism, drug addiction, transportation, low edu. Level, literacy, decrease access to med. care, senior living, rehab)? @ -No Was there de-escalation of care discussed even if they declined (Discuss DNR or withdrawal of care, Hospice)? DNR status @ -No What co-morbidities impacted this encounter? (DM, HTN, Smoking, COPD, CAD, Cancer, CVA, ARF, Chemo, Hep., AIDS, mental health diagnosis, sleep apnea, morbid obesity)? @ -None Was patient admitted / discharged? Hospital course, mention meds given and route, prescriptions, significant lab abnormalities, going to OR and other pertinent info. @ -Based on patient's presentation and physical exam, presents with right-sided abdominal pain. We will obtain abdominal labs as well as CT abdomen pelvis. Patient in agreement this plan. Patient be symptomatically treated with IV fluids, Zofran, Protonix, Toradol. Vital signs are within acceptable limits. Patient was in agreement this plan. EKG shows no signs of acute ischemia.Laboratory studies within acceptable li mits. CT imaging still pending at this time. Signed out to ER physician Dr. Becerra pending results of imaging. Patient eventually discharged home by Dr. Becerra after negative imaging. Undiagnosed new problem with uncertain prognosis? @ -No Drug Therapy requiring intensive monitoring for toxicity (Heparin, Nitro, Insulin, Cardizem)? @ -No Were any procedures done? @ -No Diagnosis/symptom? @ -Abdominal pain of unknown etiology Acute, or Chronic, or Acute on Chronic? @ -Acute Uncomplicated (without systemic symptoms) or Complicated (systemic symptoms)? @ -uncomplicated Side effects of treatment? @ -None Exacerbation, Progression, or Severe Exacerbation] @ -No Poses a threat to life or bodily function? @ -unlikely (Jose Burton) - Lab Data Lab Results 08/03/23 08/03/23 08/03/23 Range/Units 19:39 20:15 20:15 WBC 12.7 H (3.8-10.6) k/uL RBC 4.93 (3.80-5.40) m/uL Hgb 13.9 (11.4-16.0) gm/dL Hct 43.0 (34.0-46.0) % MCV 87.1 (80.0-100.0) fL MCH 28.2 (25.0-35.0) pg MCHC 32.4 (31.0-37.0) g/dL RDW 13.5 (11.5-15.5) % Plt Count 329 (150-450) k/uL MPV 7.2 Neutrophils % 68 % Lymphocytes % 23 % Monocytes % 4 % Eosinophils % 3 % Basophils % 1 % Neutrophils # 8.7 H (1.3-7.7) k/uL Lymphocytes # 2.9 (1.0-4.8) k/uL Monocytes # 0.5 (0-1.0) k/uL Eosinophils # 0.4 (0-0.7) k/uL Basophils # 0.1 (0-0.2) k/uL PT 10.4 (10.0-12.5) sec INR 0.9 (<1.2) APTT 25.8 (22.0-30.0) sec Sodium (137-145) mmol/L Potassium (3.5-5.1) mmol/L Chloride (98-107) mmol/L Carbon Dioxide (22-30) mmol/L Anion Gap mmol/L BUN (7-17) mg/dL Creatinine (0.52-1.04) mg/dL Est GFR (CKD-EPI)AfAm (>60 ml/min/1.73 sqM) Est GFR (CKD-EPI)NonAf (>60 ml/min/1.73 sqM) Glucose (74-99) mg/dL Plasma Lactic Acid Leonardo (0.7-2.0) mmol/L Calcium (8.4-10.2) mg/dL Total Bilirubin (0.2-1.3) mg/dL AST (14-36) U/L ALT (4-34) U/L Alkaline Phosphatase (38-126) U/L Total Protein (6.3-8.2) g/dL Albumin (3.5-5.0) g/dL Amylase (30-110) U/L Lipase (23-300) U/L HCG, Qual Urine Color Colorless Urine Appearance Clear (Clear) Urine pH 6.5 (5.0-8.0) Ur Specific [place] 1.013 (1.001-1.035) Urine Protein Negative (Negative) Urine Glucose (UA) Negative (Negative) Urine Ketones Negative (Negative) Urine Blood Small H (Negative) Urine Nitrite Negative (Negative) Urine Bilirubin Negative (Negative) Urine Urobilinogen <2.0 (<2.0) mg/dL Ur Leukocyte Esterase Negative (Negative) Urine RBC 2 (0-5) /hpf Urine WBC 4 (0-5) /hpf Ur Squamous Epith Cells 4 (0-4) /hpf Influenza Type A (PCR) (Not Detectd) Influenza Type B (PCR) (Not Detectd) RSV (PCR) (Not Detectd) SARS-CoV-2 (PCR) (Not Detectd) 08/03/23 08/03/23 08/03/23 Range/Units 20:15 20:15 20:15 WBC (3.8-10.6) k/uL RBC (3.80-5.40) m/uL Hgb (11.4-16.0) gm/dL Hct (34.0-46.0) % MCV (80.0-100.0) fL MCH (25.0-35.0) pg MCHC (31.0-37.0) g/dL RDW (11.5-15.5) % Plt Count (150-450) k/uL MPV Neutrophils % % Lymphocytes % % Monocytes % % Eosinophils % % Basophils % % Neutrophils # (1.3-7.7) k/uL Lymphocytes # (1.0-4.8) k/uL Monocytes # (0-1.0) k/uL Eosinophils # (0-0.7) k/uL Basophils # (0-0.2) k/uL PT (10.0-12.5) sec INR (<1.2) APTT (22.0-30.0) sec Sodium 139 (137-145) mmol/L Potassium 3.8 (3.5-5.1) mmol/L Chloride 110 H (98-107) mmol/L Carbon Dioxide 24 (22-30) mmol/L Anion Gap 5 mmol/L BUN 12 (7-17) mg/dL Creatinine 0.59 (0.52-1.04) mg/dL Est GFR (CKD-EPI)AfAm >90 (>60 ml/min/1.73 sqM) Est GFR (CKD-EPI)NonAf >90 (>60 ml/min/1.73 sqM) Glucose 91 (74-99) mg/dL Plasma Lactic Acid Leonardo 1.3 (0.7-2.0) mmol/L Calcium 8.2 L (8.4-10.2) mg/dL Total Bilirubin 0.4 (0.2-1.3) mg/dL AST 18 (14-36) U/L ALT 21 (4-34) U/L Alkaline Phosphatase 97 (38-126) U/L Total Protein 6.0 L (6.3-8.2) g/dL Albumin 3.3 L (3.5-5.0) g/dL Amylase 42 (30-110) U/L Lipase 90 (23-300) U/L HCG, Qual Not Detected Urine Color Urine Appearance (Clear) Urine pH (5.0-8.0) Ur Specific [place] (1.001-1.035) Urine Protein (Negative) Urine Glucose (UA) (Negative) Urine Ketones (Negative) Urine Blood (Negative) Urine Nitrite (Negative) Urine Bilirubin (Negative) Urine Urobilinogen (<2.0) mg/dL Ur Leukocyte Esterase (Negative) Urine RBC (0-5) /hpf Urine WBC (0-5) /hpf Ur Squamous Epith Cells (0-4) /hpf Influenza Type A (PCR) Not Detected (Not Detectd) Influenza Type B (PCR) Not Detected (Not Detectd) RSV (PCR) Not Detected (Not Detectd) SARS-CoV-2 (PCR) Not Detected (Not Detectd) - EKG Data EKG Comments: 12-lead Electrocardiogram Interpretation Note EKG was reviewed and interpreted by myself. 12-lead ECG performed at 2121 is interpreted by me as revealing normal sinus rhythm at a rate of 74 beats per minute. [place] is normal. IA interval is 151 ms, QRS duration is 96 ms, QTc is 421 ms.. There were no ST or T wave abnormalities to suggest myocardial ischemia or injury. R wave progression across the precordium was satisfactory. By my interpretation this EKG is non-diagnostic for acute ischemia. (Jose Burton) Disposition Is patient prescribed a controlled substance at d/c from ED?: No <Adams Becerra - Last Filed: 08/04/23 03:05> <Jose Burton - Last Filed: 08/06/23 20:47> Clinical Impression: Abdominal pain Disposition: HOME SELF-CARE Condition: Good Instructions (If sedation given, give patient instructions): Abdominal Pain (ED) Referrals: Catherine Goyal MD [Primary Care Provider] - 1-2 days
[2023-08-03 22:14] LABS: HCG,Qualitative Serum Not Detected
[2023-08-03 22:15] LABS: ALT 21 U/L (4-34); AST 18 U/L (14-36); African American GFR (CKD) >90 (>60 ml/min/1.73 sqM); Albumin 3.3 g/dL (3.5-5.0); Alkaline Phosphatase 97 U/L (38-126); Amylase 42 U/L (30-110); Anion Gap 5 mmol/L; Blood Urea Nitrogen 12 mg/dL (7-17); Calcium 8.2 mg/dL (8.4-10.2); Carbon Dioxide 24 mmol/L (22-30); Chloride 110 mmol/L (98-107); Glucose 91 mg/dL (74-99); Lipase 90 U/L (23-300); Non-African American GFR(CKD) >90 (>60 ml/min/1.73 sqM); Potassium 3.8 mmol/L (3.5-5.1); Sodium 139 mmol/L (137-145); Total Bilirubin 0.4 mg/dL (0.2-1.3)
--- NOTE | 2023-08-04 01:58 | CT ---
EXAMINATION TYPE: CT abdomen pelvis w con CT DLP: 4692 mGycm, Automated exposure control for dose reduction was used. DATE OF EXAM: 08/03/2023 9:19 PM COMPARISON: None. CLINICAL INDICATION:Female, 37 years old with history of abdominal pain, nonfocal with diarrhea/const ipatio; abd pain TECHNIQUE: Axial CT of the abdomen and pelvis. Sagittal and coronal reformats were created on a [employer] workstation. Contrast used:100ml mL of Isovue 300 with IV Contrast, (none if empty) Oral contrast used: without Oral Contrast (none if empty) FINDINGS: LOWER CHEST: Unremarkable ABDOMEN LIVER: Mild hepatic steatosis suggested. GALLBLADDER AND BILE DUCTS: Gallbladder surgically absent. Biliary tree does not appear pathologicall y dilated. PANCREAS: No acute finding SPLEEN: Unremarkable. ADRENAL GLANDS: Mildly thickened, may be seen with hyperplasia.. KIDNEYS AND URETERS: Kidneys show no visible calculi or hydroureter. PELVIS BLADDER: Unremarkable REPRODUCTIVE: Unremarkable. ABDOMEN & PELVIS STOMACH AND BOWEL: Stomach and small bowel are nondistended, no evidence of obstruction. Several sc attered diverticula particularly in the distal colon, without evidence of diverticulitis . The append ix appears normal. PERITONEUM/RETROPERITONEUM: No evidence of pneumoperitoneum or free fluid. VASCULATURE: Aorta and major branches are grossly unremarkable. No AAA. LYMPH NODES: No enlarged nodes by CT size criteria. SOFT TISSUE/ABDOMINAL WALL: Small fat-containing umbilical hernia. MUSCULOSKELETAL: No acute osseous abnormalities. IMPRESSION: No acute abnormality in the abdomen or pelvis.
[2023-08-04 03:49] VITALS: BP 142/82; PULSE 88
== END 2023-08-04 03:25 | disposition home or self-care (01) ==
LOC: EC 18:07
DX: R10.11 Right upper quadrant pain (principal); R10.31 Right lower quadrant pain; F17.200 Nicotine dependence, unspecified, uncomplicated; Z88.0 Allergy status to penicillin; Z88.1 Allergy status to other antibiotic agents; Z90.49 Acquired absence of other specified parts of digestive tract
CPT/HCPCS: 36415; 93005; 80053; 82150; 83605; 83690; 85025; 85610; 85730; 81001; 84703; 87636; 74177; 99285; 96374; 96375 ×2; 96361; J2405; J1885; C9113; Q9967

== ENCOUNTER → 2023-08-21 | Outpatient (CLI) | payer OTHER ==
--- NOTE | 2023-08-21 12:53 | US ---
EXAMINATION TYPE: US thyroid st tissue head/neck DATE OF EXAM: 08/21/2023 COMPARISON: CT 07/06/2022. CLINICAL INDICATION: Female, 37 years old with history of E04.1 NONTOXIC SINGLE THYROID NODULE; docto r felt nodule, not on meds GLAND SIZE: Right Lobe: 2.3 x 1.3 x 2.0 cm Overall Parenchyma: homogeneous Left Lobe: 4.4 x 1.8 x 1.9 cm Overall Parenchyma: heterogeneous Isthmus Thickness: 0.4 cm NODULES RIGHT: # of nodules measured on right: 0 LEFT: # of nodules measured on left: 1 1. 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 Echogenicity: Hypoechoic (2 points). Shape: Wider than tall (0 points). Margin: Smooth (0 points). Echogenic foci: None or large comet-tail artifacts (0 points) Recommendation: If >2.5cm: FNA; If >1.5cm: Follow up at 1,3,5 years ISTHMUS: # of nodules measured in the isthmus: 0 Bilateral neck scanned, no evidence of lymphadenopathy. IMPRESSION: Left thyroid nodule that meet criteria for follow-up.
== END | disposition home or self-care (01) ==
LOC: RADUSWWP 11:25
PROVIDERS: ATTEND Family Medicine
DX: E04.1 Nontoxic single thyroid nodule (principal)
CPT/HCPCS: 76536

== ENCOUNTER 2024-08-23 17:30 | Emergency (ER) | payer OTHER ==
[2024-08-23 18:59] LABS: Basophils # (A) 0.11 10*3/uL (0.00-0.10); Basophils % (A) 0.9 %; Eosinophils # (A) 0.29 10*3/uL (0.04-0.35); Eosinophils % (A) 2.3 %; HCT 40.7 % (37.2-46.3); HGB 13.8 g/dL (12.0-15.0); Lymphocytes # (A) 1.22 10*3/uL (0.90-5.00); Lymphocytes % (A) 9.9 %; MCH 29.2 pg (27.0-32.0); MCHC 33.9 g/dL (32.0-37.0); Mean Platelet Volume 9.2 fL (9.5-12.2); Monocytes % (A) 6.5 %; Neutrophils # (A) 9.67 10*3/uL (1.80-7.70); Neutrophils % (A) 78.1 %; Platelet Count 298 10*3/uL (140-440); RBC 4.73 10*6/uL (4.10-5.20); RDW 13.9 % (11.5-14.5); WBC 12.37 10*3/uL (4.50-10.00)
[2024-08-23 19:11] LABS: ALT 54 U/L (4-34); AST 56 U/L (14-36); African American GFR (CKD) >90 (>60 ml/min/1.73 sqM); Albumin 3.8 g/dL (3.5-5.0); Alkaline Phosphatase 93 U/L (38-126); Anion Gap 8 mmol/L; Blood Urea Nitrogen 15 mg/dL (7-17); Calcium 8.6 mg/dL (8.4-10.2); Carbon Dioxide 26 mmol/L (22-30); Chloride 102 mmol/L (98-107); Glucose 168 mg/dL (74-99); Non-African American GFR(CKD) >90 (>60 ml/min/1.73 sqM); Potassium 4.3 mmol/L (3.5-5.1); Sodium 136 mmol/L (137-145); Total Bilirubin 0.5 mg/dL (0.2-1.3); Total Protein 6.7 g/dL (6.3-8.2)
--- NOTE | 2024-08-23 19:12 | XR ---
EXAMINATION TYPE: XR chest 2V DATE OF EXAM: 08/23/2024 7:08 PM COMPARISON: Chest radiograph 03/19/2024. CLINICAL INDICATION: Female, 38 years old with history of difficulty breathing; [facility] TECHNIQUE: XR chest 2V Frontal and lateral views of the chest. FINDINGS: Lungs/Pleura: There is no evidence of pleural effusion, focal consolidation, or pneumothorax. Pulmonary vascularity: Unremarkable. Heart/mediastinum: Cardiomediastinal silhouette is unremarkable. Musculoskeletal: No acute osseous pathology. Other findings: None IMPRESSION: No acute cardiopulmonary disease/process. [facility], , 08/23/2024 7:10 PM
[2024-08-23 19:13] LABS: INR 0.9 (<1.2); Partial Thromboplastin Time 23.9 sec (22.0-30.0); Prothrombin Time 10.3 sec (10.0-12.5)
--- NOTE | 2024-08-23 19:24 | ED ---
General Adult HPI - General Source: patient, RN notes reviewed Mode of arrival: ambulatory Limitations: no limitations <Ethan Guzman - Last Filed: 08/23/24 19:22> - General Source: patient, RN notes reviewed <Silvia Fatima - Last Filed: 08/23/24 22:47> - General Chief complaint: Shortness of Breath Stated complaint: AIRAM Time Seen by Provider: 08/23/24 17:47 - History of Present Illness Initial comments: Quick note: This is a 38-year-old female presenting with difficulty breathing x 7 days. Patient states breathing worsened today despite 2 recent urgent care visits, receiving cefdinir and doxycycline as well as 5 days of prednisone with minimal relief. Patient also endorses nasal congestion with green nasal discharge, dry cough and pleuritic chest pain with inspiration. Endorses use of ibuprofen and Mucinex with minimal relief. Endorses history of childhood asthma. (Ethan Guzman) 38-year-old female presenting for shortness of breath x 1.5 weeks. Reports she has been having cough, nasal congestion, and ear pain. She has been seen at urgent care twice, receiving cefdinir and doxycycline as well as prednisone with minimal relief. States she does have pain with inspiration and dyspnea with exertion. Denies history of cardiac or pulmonary issues. She is a active smoker. (Silvia Fatima) - Related Data Home Medications Medication Instructions Recorded Confirmed Omeprazole [PriLOSEC] 20 mg PO BID 01/27/19 12/13/23 Medroxyprogesterone Acetate 150 mg IM ONCE 04/05/19 12/13/23 [Depo-Provera] Atorvastatin [Lipitor] 10 mg PO HS 12/13/23 12/13/23 Cholecalciferol (Vitamin D3) 1 tab PO DAILY 12/13/23 12/13/23 [Vitamin D3 (50 Mcg = 2000 Iu)] Loratadine [Claritin] 10 mg PO DAILY 12/13/23 12/13/23 Multivit-Min/Iron Fum/Folic AC 1 tab PO DAILY 12/13/23 12/13/23 [One-A-Day Women's Complete Tab] metFORMIN HCL ER [Glucophage XR] 500 mg PO 1800 12/13/23 12/13/23 Previous Rx's Medication Instructions Recorded Albuterol Sulfate [Albuterol 1 puff PO Q4-6H PRN #8.5 gm 07/06/22 Sulfate Hfa] Albuterol Inhaler [Ventolin Hfa 1 - 2 puff INHALATION Q6H PRN #1 08/23/24 Inhaler] each Benzonatate [Tessalon Perles] 100 mg PO TID PRN #15 capsule 08/23/24 Allergies Allergy/AdvReac Type Severity Reaction Status Date / Time amoxicillin [From Augmentin] Allergy Swelling Verified 08/23/24 17:36 clavulanic acid Allergy Rash/Hives Verified 08/23/24 17:36 [From Augmentin] Review of Systems ROS Other: All systems not noted in ROS Statement are negative. <Ethan Guzman - Last Filed: 08/23/24 19:22> ROS Other: All systems not noted in ROS Statement are negative. <Silvia Fatima - Last Filed: 08/23/24 22:47> ROS Statement: Those systems with pertinent positive or pertinent negative responses have been documented in the HPI. 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 cyst, PCOS. Fatty liver disease. C/O hx heart beating fast, pain in lt shoulder - had echo stress test. History of Any Multi-Drug Resistant Organisms: MRSA Date of last positivie culture/infection: 2014 MDRO Source:: right buttock Past Surgical History: Cholecystectomy, Ear Surgery Additional Past Surgical History / Comment(s): Exc cyst lt wrist, cervix biopsy, Bilateral ear surgery, reconstruction ear drum left Past Anesthesia/Blood Transfusion Reactions: No Reported Reaction Past Psychological History: ADD/ADHD, Anxiety, Depression Smoking Status: Current every day smoker Past Alcohol Use History: None Reported Past Drug Use History: None Reported - Past Family History Mother Family Medical History: Diabetes Mellitus, Deep Vein Thrombosis (DVT) <Ethan Guzman - Last Filed: 08/23/24 19:22> General Exam Limitations: no limitations <Ethna Guzman - Last Filed: 08/23/24 19:22> General appearance: alert, in no apparent distress Head exam: Present: atraumatic, normocephalic, normal inspection Eye exam: Present: normal appearance, PERRL, EOMI. Absent: scleral icterus, conjunctival injection, periorbital swelling ENT exam: Present: normal exam, normal oropharynx, mucous membranes moist, TM's normal bilaterally Neck exam: Present: normal inspection. Absent: tenderness, meningismus, lymphadenopathy Respiratory exam: Present: normal lung sounds bilaterally. Absent: respiratory distress, wheezes, rales, rhonchi, stridor Cardiovascular Exam: Present: regular rate, normal rhythm, normal heart sounds. Absent: systolic murmur, diastolic murmur, rubs, gallop, clicks Neurological exam: Present: alert, oriented X3 Psychiatric exam: Present: normal affect, normal mood Skin exam: Present: warm, dry, intact, normal color. Absent: rash <Silvia Fatima - Last Filed: 08/23/24 22:47> - General Exam Comments Initial Comments: Visual Physical Exam Vital signs reviewed General: Well-appearing, nontoxic, no acute distress. Head: Normocephalic, atraumatic Eyes: PERRLA, EOMI ENT: Airway patent Chest: Nonlabored breathing Skin: No visual rash, normal skin tone Neuro: Alert and oriented 3 Musculoskeletal: No gross abnormalities (Ethan Guzman) Course Vital Signs 08/23/24 08/23/24 08/23/24 17:32 20:04 21:12 Temperature 98.0 F Pulse Rate 104 H 95 Respiratory 18 18 Rate Blood Pressure 159/93 O2 Sat by Pulse 97 Oximetry 08/23/24 21:27 Temperature Pulse Rate 94 Respiratory Rate Blood Pressure O2 Sat by Pulse Oximetry EKG Findings - EKG Results: EKG: interpreted by ERMD (EKG reveals sinus tachycardia with no acute ST changes. Ventricular rate 101 bpm, IL interval 150, QRS duration 94, QT/QTc 333/391) <Silvia Fatima - Last Filed: 08/23/24 22:47> Medical Decision Making - Lab Data Result diagrams: 08/23/24 18:24 08/23/24 18:24 <Ethan Guzman - Last Filed: 08/23/24 19:22> - Lab Data Result diagrams: 08/23/24 18:24 08/23/24 18:24 <Silvia Fatima - Last Filed: 08/23/24 22:47> - Medical Decision Making I completed the quick note portion of this chart signed JOEY Luis (Ethan Guzman) Was pt. sent in by a medical professional or institution (CONCEPCIÓN Funes, POLITICAL SCIENCE RESEARCH ASSISTANT, urgent care, hospital, or custodial...) When possible be specific @ -No Did you speak to anyone other than the patient for history (EMS, parent, family, police, friend...)? What history was obtained from this source @ -No Did you review nursing and triage notes (agree or disagree)? Why? @ -I reviewed and agree with nursing and triage notes Were old charts reviewed (outside hosp., previous admission, EMS record, old EKG, old radiological studies, urgent care reports/EKG's, custodial records)? Report findings @ -No old charts were reviewed Differential Diagnosis (chest pain, altered mental status, abdominal pain women, abdominal pain men, vaginal bleeding, weakness, fever, dyspnea, syncope, headache, dizziness, GI bleed, back pain, seizure, CVA, palpatations, mental health, musculoskeletal)? @ -Differential Dyspnea: Coronary syndrome, arrhythmia, tamponade, asthma, COPD, pulmonary embolism, pneumonia, pneumothorax, pulmonary effusion, anaphylaxis, diabetic ketoacidosis, flailed chest, pulmonary contusion, diaphragmatic rupture, anemia, neuromuscular, this is not meant to be an all-inclusive list. EKG interpreted by me (3pts min.). @ -As above X-rays interpreted by me (1pt min.). @ -Chest x-ray reveals no acute process CT interpreted by me (1pt min.). @ - CT chest angio negative for PE U/S interpreted by me (1pt. min.). @ -None done What testing was considered but not performed or refused? (CT, X-rays, U/S, labs)? Why? @ -None What meds were considered but not given or refused? Why? @ -None Did you discuss the management of the patient with other professionals (professionals i.e. CONCEPCIÓN Funes, POLITICAL SCIENCE RESEARCH ASSISTANT, lab, RT, psych nurse, manager social responsibility, hot knife foxing cutter, teacher, sergeant of officers, case liner)? Give summary @ -No Was smoking cessation discussed for >3mins.? @ -No Was critical care preformed (if so, how long)? @ -No Were there social determinants of health that impacted care today? How? (Homeles sness, low income, unemployed, alcoholism, drug addiction, transportation, low edu. Level, literacy, decrease access to med. care, retirement, rehab)? @ -No Was there de-escalation of care discussed even if they declined (Discuss DNR or withdrawal of care, Hospice)? DNR status @ -No What co-morbidities impacted this encounter? (DM, HTN, Smoking, COPD, CAD, Cancer, CVA, ARF, Chemo, Hep., AIDS, mental health diagnosis, sleep apnea, morbid obesity)? @ -None Was patient admitted / discharged? Hospital course, mention meds given and route, prescriptions, significant lab abnormalities, going to OR and other pertinent info. @ -Discharge. 38-year-old female presenting for shortness of breath x 1.5 weeks with associated nasal congestion, ear pain, sore throat, and pleuritic chest pain. Patient is afebrile and tachycardic at 104 bpm, satting 97% on room air. No sign of respiratory distress. Heart and lungs clear to auscultation bilaterally. Patient was given a DuoNeb treatment. Lab work remarkable for elevated D-dimer 0.7, mild leukocytosis with white blood cell count 12, mildly elevated LFTs, troponin undetectable. Chest x-ray reveals no acute process. EKG reveals sinus tachycardia with no acute ST changes. Patient is positive for influenza B. Due to elevated D-dimer and tachycardia, CT chest angio was obtained which was negative for PE. Discussed results with patient. Discussed diagnosis of influenza B. Appropriate return precautions and supportive care discussed. Case was discussed with my ED attending Dr. Singleton. Undiagnosed new problem with uncertain prognosis? @ -No Drug Therapy requiring intensive monitoring for toxicity (Heparin, Nitro, Insulin, Cardizem)? @ -No Were any procedures done? @ -No Diagnosis/symptom? @ -Influenza B Acute, or Chronic, or Acute on Chronic? @ -Acute Uncomplicated (without systemic symptoms) or Complicated (systemic symptoms)? @ -Uncomplicated Side effects of treatment? @ -No Exacerbation, Progression, or Severe Exacerbation? @ -No Poses a threat to life or bodily function? How? (Chest pain, USA, MT, pneumonia, PE, COPD, DKA, ARF, appy, cholecystitis, CVA, Diverticulitis, Homicidal, Suicidal, threat to staff... and all critical care pts) @ -No (Silvia Fatima) - Lab Data Lab Results 05/16/25 05/16/25 05/16/25 Range/Units 18:24 18:24 18:24 WBC 12.37 H (4.50-10.00) 10*3/uL RBC 4.73 (4.10-5.20) 10*6/uL Hgb 13.8 (12.0-15.0) g/dL Hct 40.7 (37.2-46.3) % MCV 86.0 (80.0-97.0) fL MCH 29.2 (27.0-32.0) pg MCHC 33.9 (32.0-37.0) g/dL Plt Count 298 (140-440) 10*3/uL MPV 9.2 L (9.5-12.2) fL Immature Gran % (Auto) 2.3 % Neutrophils % 78.1 % Lymphocytes % 9.9 % Monocytes % 6.5 % Eosinophils % 2.3 % Basophils % 0.9 % Immature Gran # 0.28 H (0.00-0.04) 10*3/uL Neutrophils # 9.67 H (1.80-7.70) 10*3/uL Lymphocytes # 1.22 (0.90-5.00) 10*3/uL Monocytes # 0.80 (0.20-1.00) 10*3/uL Eosinophils # 0.29 (0.04-0.35) 10*3/uL Basophils # 0.11 H (0.00-0.10) 10*3/uL PT 10.3 (10.0-12.5) sec INR 0.9 (<1.2) APTT 23.9 (22.0-30.0) sec D-Dimer (<0.60) mg/L FEU Sodium 136 L (137-145) mmol/L Potassium 4.3 (3.5-5.1) mmol/L Chloride 102 (98-107) mmol/L Carbon Dioxide 26 (22-30) mmol/L Anion Gap 8 mmol/L BUN 15 (7-17) mg/dL Creatinine 0.79 (0.52-1.04) mg/dL Est GFR (CKD-EPI)AfAm >90 (>60 ml/min/1.73 sqM) Est GFR (CKD-EPI)NonAf >90 (>60 ml/min/1.73 sqM) Glucose 168 H (74-99) mg/dL Plasma Lactic Acid Leonardo (0.7-2.0) mmol/L Calcium 8.6 (8.4-10.2) mg/dL Total Bilirubin 0.5 (0.2-1.3) mg/dL AST 56 H (14-36) U/L ALT 54 H (4-34) U/L Alkaline Phosphatase 93 (38-126) U/L Troponin I (0.000-0.034) ng/mL Total Protein 6.7 (6.3-8.2) g/dL Albumin 3.8 (3.5-5.0) g/dL Influenza Type A (PCR) (Not Detectd) Influenza Type B (PCR) (Not Detectd) RSV (PCR) (Not Detectd) SARS-CoV-2 (PCR) (Not Detectd) 08/23/24 08/23/24 08/23/24 Range/Units 18:24 18:24 18:24 WBC (4.50-10.00) 10*3/uL RBC (4.10-5.20) 10*6/uL Hgb (12.0-15.0) g/dL Hct (37.2-46.3) % MCV (80.0-97.0) fL MCH (27.0-32.0) pg MCHC (32.0-37.0) g/dL Plt Count (140-440) 10*3/uL MPV (9.5-12.2) fL Immature Gran % (Auto) % Neutrophils % % Lymphocytes % % Monocytes % % Eosinophils % % Basophils % % Immature Gran # (0.00-0.04) 10*3/uL Neutrophils # (1.80-7.70) 10*3/uL Lymphocytes # (0.90-5.00) 10*3/uL Monocytes # (0.20-1.00) 10*3/uL Eosinophils # (0.04-0.35) 10*3/uL Basophils # (0.00-0.10) 10*3/uL PT (10.0-12.5) sec INR (<1.2) APTT (22.0-30.0) sec D-Dimer 0.71 H (<0.60) mg/L FEU Sodium (137-145) mmol/L Potassium (3.5-5.1) mmol/L Chloride (98-107) mmol/L Carbon Dioxide (22-30) mmol/L Anion Gap mmol/L BUN (7-17) mg/dL Creatinine (0.52-1.04) mg/dL Est GFR (CKD-EPI)AfAm (>60 ml/min/1.73 sqM) Est GFR (CKD-EPI)NonAf (>60 ml/min/1.73 sqM) Glucose (74-99) mg/dL Plasma Lactic Acid Leonardo 1.7 (0.7-2.0) mmol/L Calcium (8.4-10.2) mg/dL Total Bilirubin (0.2-1.3) mg/dL AST (14-36) U/L ALT (4-34) U/L Alkaline Phosphatase (38-126) U/L Troponin I <0.012 (0.000-0.034) ng/mL Total Protein (6.3-8.2) g/dL Albumin (3.5-5.0) g/dL Influenza Type A (PCR) (Not Detectd) Influenza Type B (PCR) (Not Detectd) RSV (PCR) (Not Detectd) SARS-CoV-2 (PCR) (Not Detectd) 08/23/24 Range/Units 20:04 WBC (4.50-10.00) 10*3/uL RBC (4.10-5.20) 10*6/uL Hgb (12.0-15.0) g/dL Hct (37.2-46.3) % MCV (80.0-97.0) fL MCH (27.0-32.0) pg MCHC (32.0-37.0) g/dL Plt Count (140-440) 10*3/uL MPV (9.5-12.2) fL Immature Gran % (Auto) % Neutrophils % % Lymphocytes % % Monocytes % % Eosinophils % % Basophils % % Immature Gran # (0.00-0.04) 10*3/uL Neutrophils # (1.80-7.70) 10*3/uL Lymphocytes # (0.90-5.00) 10*3/uL Monocytes # (0.20-1.00) 10*3/uL Eosinophils # (0.04-0.35) 10*3/uL Basophils # (0.00-0.10) 10*3/uL PT (10.0-12.5) sec INR (<1.2) APTT (22.0-30.0) sec D-Dimer (<0.60) mg/L FEU Sodium (137-145) mmol/L Potassium (3.5-5.1) mmol/L Chloride (98-107) mmol/L Carbon Dioxide (22-30) mmol/L Anion Gap mmol/L BUN (7-17) mg/dL Creatinine (0.52-1.04) mg/dL Est GFR (CKD-EPI)AfAm (>60 ml/min/1.73 sqM) Est GFR (CKD-EPI)NonAf (>60 ml/min/1.73 sqM) Glucose (74-99) mg/dL Plasma Lactic Acid Leonardo (0.7-2.0) mmol/L Calcium (8.4-10.2) mg/dL Total Bilirubin (0.2-1.3) mg/dL AST (14-36) U/L ALT (4-34) U/L Alkaline Phosphatase (38-126) U/L Troponin I (0.000-0.034) ng/mL Total Protein (6.3-8.2) g/dL Albumin (3.5-5.0) g/dL Influenza Type A (PCR) Not Detected (Not Detectd) Influenza Type B (PCR) Detected A (Not Detectd) RSV (PCR) Not Detected (Not Detectd) SARS-CoV-2 (PCR) Not Detected (Not Detectd) Disposition <Ethan Guzman - Last Filed: 08/23/24 19:22> Is patient prescribed a controlled substance at d/c from ED?: No Time of Disposition: 22:46 <Silvia Fatima - Last Filed: 08/23/24 22:47> Clinical Impression: Influenza B Disposition: HOME SELF-CARE Condition: Stable Instructions (If sedation given, give patient instructions): Influenza (ED) Additional Instructions: Use albuterol inhaler as needed. Use promethazine as needed for cough. Please return to the Emergency Department if symptoms worsen or any other concerns. Prescriptions: Benzonatate [Tessalon Perles] 100 mg PO TID PRN #15 capsule PRN Reason: Cough Albuterol Inhaler [Ventolin Hfa Inhaler] 1 - 2 puff INHALATION Q6H PRN #1 each PRN Reason: Shortness Of Breath Referrals: None,Stated [REFERRING] - 1-2 days
[2024-08-23 20:51] LABS: Influenza A Not Detected (Not Detectd); Influenza B Detected (Not Detectd); RSV Not Detected (Not Detectd)
[2024-08-23] MEDS: IPRATROPIUM-ALBUTEROL 3 ML NEB INHALATION STA (21:12)
[2024-08-23] MEDS: SODIUM CHLORIDE 0.9% 1,000 ML IV STA (22:02)
--- NOTE | 2024-08-23 22:04 | CT ---
EXAMINATION TYPE: CT chest angio for PE DATE OF EXAM: 08/23/2024 9:54 PM COMPARISON: CT chest angiogram study dated 11/23/2018. CLINICAL INDICATION: Female, 38 years old with history of shortness of breath; Pt is coming in for DI B/SOB. Pt states she has been to urgent care x2 and has been put on 2 different abx and none of them are helping and she feels her AIRAM is becoming worse. +FLU ELEVATED DDIMER TECHNIQUE/CONTRAST: CTA scan of the thorax is performed with IV Contrast, patient injected with 180 mL of Isovue 370, MIP images are created and reviewed these are created on a separate workstation.. CT DLP: 3082.7 mGycm, Automated exposure control for dose reduction was used. FINDINGS: Pulmonary Artery: Suboptimal timing of contrast bolus severely limits evaluation of mid and distal se gmental and subsegmental pulmonary artery branches. Within these limitations, there is no evidence fo r a filling defect within the pulmonary vasculature to suggest acute pulmonary embolism. The pulmona ry artery is of normal size. Lungs/Pleura: No evidence of focal consolidation, pleural effusion or pneumothorax. Airway: Large airways are patent. Heart: Heart is within normal limits for size. Vasculature: No evidence of aortic aneurysm. Mediastinum: No gross evidence of adenopathy. Musculoskeletal: No acute osseous abnormalities Soft Tissues/lymph nodes: Unremarkable. Lower neck: No significant findings. Upper Abdomen: Severe hepatic steatosis. IMPRESSION: 1. No evidence of central or proximal segmental acute pulmonary embolism. 2. No acute pulmonary pathology. 3. Hepatomegaly and severe hepatic steatosis. [facility], , 08/23/2024 10:01 PM
[2024-08-23 22:57] VITALS: BP 132/76; PULSE 92; RESP 22; TEMP 98.9
== END 2024-08-23 22:52 | disposition home or self-care (01) ==
LOC: EC 17:30
DX: J10.1 Influenza due to other identified influenza virus with other respiratory manifestations (principal); F17.200 Nicotine dependence, unspecified, uncomplicated; Z88.0 Allergy status to penicillin; Z88.1 Allergy status to other antibiotic agents
CPT/HCPCS: 36415; 94640; 93005; 85379; 80053; 83605; 84484; 85025; 85610; 85730; 87636; 71046; 71275; 99285; 96360; Q9967

== ENCOUNTER → 2024-09-30 | Outpatient (CLI) | payer OTHER ==
--- NOTE | 2024-10-01 08:38 | US ---
EXAMINATION TYPE: US thyroid st tissue head/neck DATE OF EXAM: 09/30/2024 COMPARISON: 08/21/2023 CLINICAL INDICATION: Female, 38 years old with history of E04.1 THYROID NODULE; Follow up nodule. No t on thyroid meds. TECHNIQUE: Grayscale and color Doppler imaging of the thyroid gland. FINDINGS: GLAND SIZE: Right Lobe: 5.1 x 1.8 x 1.6 cm Overall Parenchyma: homogeneous Left Lobe: 5.2 x 2.1 x 1.9 cm Overall Parenchyma: homogeneous Isthmus Thickness: 0.5 cm NODULES RIGHT: # of nodules measured on right: 0 Calcification lower pole = 0.6 x 0.4 cm LEFT: # of nodules measured on left: 1 1. 1.7 X 1.2 x 1.1 cm, upper mid, solid or almost completely solid, hypoechoic TR4 nodule, which i s wider than tall, with smooth margins, without echogenic foci. Prior size: 1.5 x 1.0 x 1.1 cm Bilateral neck scanned, no evidence of lymphadenopathy. IMPRESSION: Solitary 1.7 cm TR4 nodule on the left. Slightly increased in size, previously measuring 1.5 cm. TR4: If nodule size is ? 1.5 cm, FNA is recommended. If nodule size is ? 1.0 cm, follow-up imaging at 1, 2, 3, and 5 years is recommended. [facility], , 10/01/2024 8:36 AM
== END | disposition home or self-care (01) ==
LOC: RADUSWWP 15:20
PROVIDERS: ATTEND Family Medicine
DX: E04.1 Nontoxic single thyroid nodule (principal)
CPT/HCPCS: 76536

== ENCOUNTER → 2024-10-01 | Outpatient (CLI) | payer OTHER ==
[2024-10-01 14:07] VITALS: BP 121/83; PULSE 111; RESP 16; TEMP 98; BMI 60.2
--- NOTE | 2024-10-01 16:26 | P.HPBAR ---
Bariatric H&P - History & Physicial H&P Date: 10/01/24 History & Physicial: Visit/CC: Initial Patient initial contact: Initial weight: 181.891 kg Initial weight in pounds: 401.00 Height: 5 ft 10 in Initial BMI: 57.5 Last weight: Current weight: 190.509 kg Current weight in pounds: 420.00 Current BMI: 60.2 [place] body weight (based on NIH guidelines): 68.5 kg Excess body weight loss: The patient is a 38 year-old F who presents for Bariatric Assessment. Patient here to discuss weight loss surgery. Patient was seen a few years ago by a different surgeon. Patient says she was lost to follow-up. BMI 60.3. Chronic reflux. Says she has taken antiacids since her teens. Now taking twice daily omeprazole. Additional comorbidities include fatty liver, dyspnea on exertion, bilateral knee pain, suspected sleep apnea, hypercholesterolemia, COPD. Patient active smoker although smokes less than she used to. Says she has a possible sleep study coming up. Patient is tachycardic. Denies DVT or dysphagia. Patient apparently was previously scheduled for a stress test but she canceled that. Drinks a lot of high calorie liquids including soda. 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 cyst, PCOS. Fatty liver disease. C/O hx heart beating fast, pain in lt shoulder - had echo stress test. History of Any Multi-Drug Resistant Organisms: MRSA Year Discovered:: 2014 MDRO Source:: right buttock Past Surgical History: Cholecystectomy, Ear Surgery Additional Past Surgical History / Comment(s): Exc cyst lt wrist, cervix biopsy, Bilateral ear surgery, reconstruction ear drum left Past Anesthesia/Blood Transfusion Reactions: No Reported Reaction Smoking Status: Current every day smoker - Past Family History Mother Family Medical History: Diabetes Mellitus, Deep Vein Thrombosis (DVT) Surgical - Exam Vital Signs Temp Pulse Resp BP 98 F 111 H 16 121/83 10/01/24 14:04 10/01/24 14:04 10/01/24 14:04 10/01/24 14:04 Physical exam: General: Well-developed, well-nourished HEENT: Normocephalic, sclerae nonicteric Abdomen: Nontender, nondistended, large pannus, no palpable hernia Extremities: Bilateral lower extremity edema Neuro: Alert and oriented Bariatric Assessment & Plan (1) Morbid obesity with BMI of 60.0-69.9, adult Narrative/Plan: 38-year-old female with morbid obesity and comorbidities. Discussed surgical options in detail. Patient has 2 risk factors that concern me regarding possible sleeve gastrectomy. 1 is her BMI of over 60 and the other is her chronic reflux symptoms. Discussed with patient at length that she would see likely greater average weight loss with the gastric bypass and decreased risk of reflux disease. Patient states she wants to have the surgery where she will lose the most weight and get off of most of her medications. After hearing all of that the patient is now interested in gastric bypass and willing to see a different surgeon to discuss that further. This will be arranged. Status: Acute Bariatric Checklist Checklist: Plan: Checklist: EGD: 1. Hiatal hernia: 2. H. Pylori: HgbA1c: Vitamin D: Smoking: Current every day smoker Primary care physician referral: Dr. Alexander Psychiatry clearance: Cardiology clearance: Sleep study: Diet journal: VTE risk score: VTE risk level: Rehab needs at discharge:
== END ==
LOC: BARWHC3 13:09
PROVIDERS: ATTEND Surgery
DX: E66.01 Morbid (severe) obesity due to excess calories (principal); F17.200 Nicotine dependence, unspecified, uncomplicated; Z88.0 Allergy status to penicillin; Z88.1 Allergy status to other antibiotic agents; Z68.44 Body mass index [BMI] 60.0-69.9, adult
CPT/HCPCS: 99202

== ENCOUNTER → 2024-10-16 | Outpatient (CLI) | payer OTHER ==
[2024-10-16 15:04] VITALS: BP 139/82; PULSE 80; RESP 16; TEMP 98.2; BMI 61.1
--- NOTE | 2024-10-16 15:33 | P.BASOAP ---
Subjective Progress Note Date: 10/16/24 Patient initially was seen in December then saw About a month ago. Patient was turned transferred back into my care for referral for gastric bypass. Patient actively smokes and vapes. She reports she just herself and her young daughter who appears to be approximately 5 years old. Patient reports wanting to take nicotine patch to try to quit smoking however not given. She does not keep a food diary journal. She does report her mother had blood clots. She also now describes having new liver disease including new diagnosis of diabetes. Patient has gained weight from last year from 400 pounds to 420 pounds and now down to 414 pounds. Patient reports longstanding reflux disease as a result of intermittent gastric bypass. Do recommend upper endoscopy for further assessment. Cholecystectomy previously completed. Patient does not need psych assessment per Demario. Patient reinforced food diary journal to start good habits and foundations for weight loss. Anticipated weight loss prior to surgery also reinforced during her 2-week protein diet. Objective - Vital Signs Vital signs: Vital Signs Temp 98.2 F 10/16/24 14:56 Pulse 80 10/16/24 14:56 Resp 16 10/16/24 14:56 BP 139/82 10/16/24 14:56 Pulse Ox FiO2 Intake & Output 10/15/24 10/16/24 10/16/24 18:59 06:59 18:59 Weight 187.787 kg Assessment/Plan Plan: Date: 10/16/24 Initial Weight: 181.891 kg Initial BMI: 59.2 Current Weight: 187.787 kg Current BMI: 61.1 Type of Surgery: Total Volume in Band: Previous Volume: Volume Removed: Volume Added: Band Size:
[2024-10-16 17:25] LABS: INR 1.0 (<1.2); Partial Thromboplastin Time 25.8 sec (22.0-30.0); Prothrombin Time 11.1 sec (10.0-12.5)
[2024-10-17 01:15] LABS: HCT 45.7 % (37.2-46.3); HGB 14.1 g/dL (12.0-15.0); MCH 27.8 pg (27.0-32.0); MCHC 30.9 g/dL (32.0-37.0); MCV 90.0 FL (80.0-97.0); NRBC Per 100 WBC 0 X 10*3/uL (0.00-0.01); Platelet Count 363 X 10*3/uL (140-440); RBC 5.08 X 10*6/uL (4.10-5.20); RDW 14.6 % (11.5-14.5); WBC 11.01 X 10*3/uL (4.50-10.00)
[2024-10-17 01:48] LABS: Urine Alcohol Negative (Negative); Urine Barbiturate Negative (Negative)
[2024-10-17 02:14] LABS: Prealbumin 19.7 mg/dL (18.0-42.0)
[2024-10-17 02:40] LABS: ALT 71 U/L (8-44); AST 66 U/L (13-35); Albumin 4.1 g/dL (3.8-4.9); Albumin/Globulin Ratio 1.46 Ratio (1.60-3.17); Alkaline Phosphatase 119 U/L (41-126); Anion Gap 13.40 mmol/L (4.00-12.00); BUN/Creat Ratio 12.57 Ratio (12.00-20.00); Blood Urea Nitrogen 8.8 mg/dL (9.0-27.0); Calcium 8.9 mg/dL (8.7-10.3); Carbon Dioxide 23.6 mmol/L (21.6-31.8); Chloride 102 mmol/L (96-109); Cholesterol 155.00 mg/dL (0.00-200.00); Ferritin 153.0 ng/mL (10.0-291.0); Globulin 2.8 g/dL (1.6-3.3); Glucose 80 mg/dL (70-110); HDL Cholesterol 23.90 mg/dL (40.00-60.00); Iron 66 UG/DL (50-170); LDL Cholesterol,Calculated 88.7 mg/dL (0.0-131.0); Magnesium 1.8 mg/dL (1.5-2.4); Potassium 4.1 mmol/L (3.5-5.5); Sodium 139 mmol/L (135-145); Total Iron Binding Capacity 378 UG/DL (228-460); Total Protein 6.9 g/dL (6.2-8.2); Triglycerides 212.00 mg/dL (0.00-149.00); VLDL Calculation 42.40 mg/dL (5.00-40.00)
[2024-10-17 02:41] LABS: Vitamin B12 730.0 pg/mL (200.0-944.0)
[2024-10-17 10:26] LABS: Zinc, Serum 74 ug/dL (60-130)
[2024-10-18 06:07] LABS: Anabasine Urine 22.0 ng/mL (<2.0)
[2024-10-21 07:14] LABS: Vit B1(Thiamine) 64 ug/L (38-122)
== END ==
LOC: BARWHC3 14:21
PROVIDERS: ATTEND Surgery Plastic and Reconstructive Surgery
DX: E66.01 Morbid (severe) obesity due to excess calories (principal); D50.8 Other iron deficiency anemias; K91.2 Postsurgical malabsorption, not elsewhere classified; E44.0 Moderate protein-calorie malnutrition; E44.1 Mild protein-calorie malnutrition; E45 Retarded development following protein-calorie malnutrition; E55.9 Vitamin D deficiency, unspecified; K74.1 Hepatic sclerosis; N19 Unspecified kidney failure; T56.894A Toxic effect of other metals, undetermined, initial encounter; K50.90 Crohn's disease, unspecified, without complications; F17.200 Nicotine dependence, unspecified, uncomplicated; Z68.44 Body mass index [BMI] 60.0-69.9, adult; Z88.0 Allergy status to penicillin; Z88.1 Allergy status to other antibiotic agents
CPT/HCPCS: 84255; 84134; 84425; 80061; 80053; 82607; 82728; 82525; 82746; 83540; 83550; 83735; 84100; 84443; 84590; 84630; 85027; 85610; 85730; 82306; 80306; 83970; 83036; G0480; G0463; 80323; 99211

== ENCOUNTER 2024-10-22 12:43 | Day surgery (SDC) | payer OTHER ==
[2024-10-22 13:43] VITALS: RESP 20; TEMP 98.1
--- NOTE | 2024-10-22 14:51 | US ---
EXAMINATION TYPE: US FNA thyroid first lesion DATE OF EXAM: 10/22/2024 2:18 PM COMPARISON: CLINICAL INDICATION:Female, 38 years old with history of E04.1 NONTOXIC SINGLE THYROID NODULE; , PROCEDURE: Informed consent was obtained. The risks and benefits of the procedure were discussed with the patien t. The site was marked. Timeout procedure was performed Ultrasound imaging demonstrates hypoechoic nodule left thyroid lobe The patient was prepped, draped in the usual sterile fashion, and locally anesthetized with 1% lidoca ine. Five fine needle aspiration were then performed with a 25 gauge needle. Samples were sent to [facility] pathology department for further analysis. Patient tolerated the procedure without incident and wa s sent home in stable condition. IMPRESSION: Successful ultrasound guided fine needle aspiration [facility] Fatuma Pleitez, , 10/22/2024 2:49 PM
[2024-10-22 15:02] VITALS: BP 119/65; PULSE 78
== END 2024-10-22 14:25 | disposition home or self-care (01) ==
LOC: RADPROMAIN 12:43
PROVIDERS: ATTEND Family Medicine
DX: E04.1 Nontoxic single thyroid nodule (principal)
CPT/HCPCS: 10005; 36415; 88173; 88305